=== PATIENT | female | born 1950 | race Caucasian/White ===

== ENCOUNTER 2024-01-22 14:41 | Emergency (ER) | payer OTHER ==
[~2024-01-22] VITALS: Ht 162.6 cm; Wt 85.0 kg
[2024-01-22] MEDS: ACETAMINOPHEN 500 MG TAB PO ONE (15:29)
[2024-01-22 16:24] LABS: Basophils # (auto) 0.1 10 ^3/uL (0-0.2); Basophils % (auto) 0.6 % (0.0-2.0); Eosinophils # (auto) 0.1 10 ^3/uL (0-0.8); Eosinophils % (auto) 0.8 % (0.0-7.0); Hematocrit 26.7 % (36.0-46.0); Hemoglobin 8.8 g/dL (12.2-16.2); Lymphocytes # (auto) 1.6 10 ^3/uL (0.4-5.4); Lymphocytes % (auto) 9.3 % (10.0-50.0); Mean Corpuscular Hgb Conc. 32.9 g/dL (32.0-36.0); Mean Corpuscular Volume 88.2 fL (80.0-100.0); Monocytes # (auto) 1.1 10 ^3/uL (0-1.3); Monocytes % (auto) 6.4 % (0.0-12.0); Neutrophils % (auto) 82.9 % (37.0-80.0); Nucleated Red Blood Cells % 0.1 %; Red Blood Cells 3.03 10^6/uL (4.0-5.20); Red Cell Distribution Width 13.5 % (11.8-14.3); White Blood Cell 16.9 10^3/uL (4.4-10.8)
[2024-01-22 16:40] LABS: Alanine Aminotransferase 19 U/L (7-40); Albumin 3.1 g/dL (3.2-4.8); Alkaline Phosphatase 77 U/L (46-116); Anion Gap 10 (5-15); Aspartate Aminotransferase 22 U/L (13-40); BUN/Creatinine Ratio 14.1 (10.0-20.0); Bilirubin, Total 0.5 mg/dL (0.2-1.0); Blood Alcohol < 3.0 mg/dL (<10); Blood Urea Nitrogen 14 mg/dL (9-23); Calcium 8.4 mg/dL (8.5-10.1); Carbon Dioxide 17 mmol/L (20-30); Chloride 105 mmol/L (98-107); Glucose 69 mg/dL (74-106); Potassium 3.8 mmol/L (3.5-5.1); Sodium 132 mmol/L (136-145); Total Protein 5.7 g/dL (5.7-8.2)
[2024-01-22 17:08] LABS: Magnesium 1.2 mg/dL (1.6-2.6)
[2024-01-22] MEDS: DEXTROSE 50% SYRINGE 50 ML IV ONE (18:20)
[2024-01-22] MEDS: DEXTROSE (50%) 50ML SYRG IV ONE (18:20)
[2024-01-22 18:58] LABS: Amphetamine Screen, Urine Neg (NEGATIVE); Barbiturate Scree,Urine Neg (NEGATIVE); Benzodiazephine Screen, Urine Neg (NEGATIVE); Cannabinoid Screen, Urine Neg (NEGATIVE); Cocaine Screen, Urine Neg (NEGATIVE); Opiate Scree,Urine Neg (NEGATIVE); Phencyclidine Screen, Urine Neg (NEGATIVE)
[2024-01-22 19:08] LABS: Urine Bacteria FEW /hpf (None Seen); Urine Blood Negative /uL (Negative); Urine Clarity Clear (Clear); Urine Color Colorless (Yellow); Urine Protein, UAD Negative (Negative); Urine Specific Gravity 1.006 (1.001-1.035); Urine Urobilinogen Normal (Negative); Urine WBC 13 /hpf (0 - 5)
[2024-01-22] MEDS ORDERED: cefTRIAXone 1GM/50ML D5W 50 ML IV ONE (20:30)
[2024-01-22] MEDS: IOHEXOL 350 MG/ML 100ML IJ ONE (20:44)
[2024-01-22] MEDS ORDERED: PIPERACILLIN-TAZOB 3.375GM 100 ML IV ONE (21:15)
[2024-01-22] MEDS ORDERED: MAGNESIUM SULFATE 1GM/100ML 100 ML IV ONE (21:15)
[2024-01-22] MEDS ORDERED: VANCOMYCIN PER PHARMACY 0 MG IV SCH (21:15)
[2024-01-22] MEDS ORDERED: VANCOMYCIN 1GM/200ML 200 ML IV ONE (21:30)
[2024-01-23 03:56] VITALS: BP 138/51; PULSE 129; RESP 18; TEMP 98.2; O2SAT 95
== END 2024-01-23 04:00 | disposition short-term general hospital (02) ==
LOC: EDBD 14:41 → ER 14:41
DX: G93.41 Metabolic encephalopathy (principal); E11.649 Type 2 diabetes mellitus with hypoglycemia without coma; R41.82 Altered mental status, unspecified; N39.0 Urinary tract infection, site not specified; E87.1 Hypo-osmolality and hyponatremia; Z79.899 Other long term (current) drug therapy
CPT/HCPCS: 36415; 70450; 71045; 71275; 80053; 80307; 80320; 81001; 83605; 83735; 84484; 85025; 85379; 93005; 96374; 99285; J7042; Q9967

== ENCOUNTER 2025-05-25 06:25 | Inpatient (IN) | payer OTHER ==
[2025-05-25] VITALS (41 sets, daily range): BP systolic 54–100; BP diastolic 15–54; PULSE 89–106; RESP 8–34; TEMP 98.6; O2SAT 81–100
[~2025-05-25] VITALS: Ht 162.6 cm; Wt 93.2 kg
--- NOTE | 2025-05-25 06:35 | ED.PDOC ---
Altered Mental Status HPI Comments 75 year old female with a Hx of DM, HTN, and Hyperlipidemia was BIBA for the c/c of ALOC, w/ associated Incontinence. EMS states that pt was found unresponsive by family, and has progressively become more altered on route, with now only responsive to painful stimuli. EMS notes that pt had an Accucheck of 500, and is currently DKA. EMS notes that pt has been non-compliant with her DM medications. Pt is noted to be altered and unresponsive at this time. Time Seen by MD: 06:31 Reviewed Notes: Nurses Notes, Medications, Allergies Allergies: Coded Allergies: NO KNOWN ALLERGIES (Unverified , 09/12/15) Information Source: Patient Mode of Arrival: EMS Severity: Severe Timing: Hours Duration: Since onset, Hours Prehospital treatment: 12 Lead EKG, Accucheck, Cosmetologist Apprentice Quality: Decreased Alertness, Change in Behavior, Confusion History of: Diabetes Associated Signs and Symptoms: None Past Medical History PAST MEDICAL HISTORY: DM, High Lipids, HTN Surgical History: Denies all surgeries OCCUPATIONAL THERAPIST AIDE History: No Pertinent OCCUPATIONAL THERAPIST AIDE History Family History Family History: Unobtainable Social History Smoker: Other Alcohol: Other Drugs: Other Lives In: Home Constitutional: denies: chills, diaphoresis, fatigue, fever, malaise, sweats, weakness, others EENTM: denies: blurred vision, double vision, ear bleeding, ear discharge, ear drainage, ear pain, ear ringing, eye pain, eye redness, hearing loss, mouth pain, mouth swelling, nasal discharge, nose bleeding, nose congestion, nose pain, photophobia, tearing, throat pain, throat swelling, voice changes, others Respiratory: denies: cough, hemoptysis, orthopnea, SOB at rest, shortness of breath, SOB with excertion, stridor, wheezing, others Cardiovascular: denies: chest pain, dizzy spells, diaphoresis, Dyspnea on exertion, edema, irregular heart beat, left arm pain, lightheadedness, palpitations, PND, syncope, others Gastrointestinal: denies: abdomen distended, abdominal pain, blood streaked bowels, constipated, diarrhea, dysphagia, difficulty swallowing, hematemesis, melena, nausea, poor appetite, poor fluid intake, rectal bleeding, rectal pain, vomiting, others Genitourinary: denies: abnormal vagina bleeding, burning, dyspareunia, dysuria, flank pain, frequency, hematuria, incontinence, pain, , vagina discharge, urgency, others Neurological: denies: dizziness, fainting, headache, left sided numbness, left sided weakness, numbness, paresthesia, pre-existing deficit, right sided numbness, right sided weakness, seizure, speech problems, tingling, tremors, weakness, others Musculoskeletal: denies: back pain, gout, joint pain, joint swelling, muscle pain, muscle stiffness, neck pain, others Integumetry: denies: bruises, change in color, change in hair/nails, dryness, laceration, lesions, lumps, rash, wounds, others Allergic/Immunocompromised: denies: Difficulty Healing, Frequent Infections, Hives, Itching, others Hematologic/Lymphatic: denies: anemia, blood clots, easy bleeding, easy bruising, swollen glands, others Endocrine: denies: excessive hunger, excessive sweating, excessive thirst, excessive urination, flushing, intolerance to cold, intolerance to heat, unexplained weight gain, unexplained weight loss, others Psychiatric: denies: anxiety, bipolar disorder, depression, hopeless, panic disorder, schizophrenia, sleepless, suicidal, others Unable to Obtain due to: Altered Mental Status All Other Systems: Reviewed and Negative Physical Exam General Appearance: Normal, Severe Distress HEENT: Normal ENT Inspection, Pharynx Normal, TMs Normal Neck: Full Range of Motion, Non-Tender, Normal, Normal Inspection Respiratory: Chest Non-Tender, Lungs Clear, No Accessory Muscle Use, No Respiratory Distress, Normal Breath Sounds Cardiovascular: No Edema, No JVD, No Murmur, No Gallop, Normal Peripheral Pulses, Tachycardia Breast Exam: Deferred Gastrointestinal: No Organomegaly, Non Tender, No Pulsatile Mass, Normal Bowel Sounds, Soft Genitalia: Deferred Pelvic: Deferred Rectal: Deferred Extremities: No calf tenderness, Normal capillary refill, Normal range of motion, Non-tender, No pedal edema, Swelling (Lymphedema right upper extremity) Musculoskeletal : Apperance: Normal Neurologic: Disoriented, No Motor Deficits, Normal Affect, Normal Mood, No Sensory Deficits Cerebellar Function: NOT DONE Reflexes: NOT DONE Skin: Dry, Normal Color, Warm, Other (Redness of the right upper arm extending to the right breast) Peripheral Pulses: 3+ Radial (R), 3+ Radial (L) Lymphatic: No Adenopathy EKG EKG : Pulse Rate (adult): 121 [place]: Normal Cardiac Rhythm: ST Block: None Hypertrophy: None ST: Normal Comments prolonged Q-T Interval Was a procedure done? Was a procedure done?: Yes Sedation Sedation?: No Central Line Recorder of insertion practice: Observer Occupation of solutions market consultant: Attending Physician Indication: Inability to obtain IV Room prepared for procedure: Yes Supervisor Feed House performed hand hygien: Yes Maximal sterile barrier precau: Mask/Eye shield, Sterile gown, Cap, Sterlie gloves, Large sterlie drape Skin Preparation: Chlorhexidine gluconate Skin preparation completely dr: Yes Insertion site: Right, Femoral Central line catheter type: [id number] dialysis Number of lumens: 3 Central line exchanged over a: Yes Antiseptic ointment applied to: Yes Post Assessment: Chest X-Ray, No Pneumothorax Informed consent obtained: No Risks/benefits/alt described: No Differential Diagnosis (ALOC) Differential Diagnosis: Dehydration, DKA, Encephalopathy, Sepsis, Drug Overdose, ETOH Intoxication, Renal Failure X-Ray, Labs, Meds, VS Vital Signs Date Time Temp Pulse Resp B/P (MAP) Pulse Ox O2 Delivery O2 Flow Rate FiO2 05/25/25 10:30 102/52 05/25/25 10:25 99/51 05/25/25 10:20 100/51 05/25/25 10:15 104/53 05/25/25 10:10 99/51 05/25/25 10:05 89/50 05/25/25 10:00 103/50 05/25/25 09:55 102/46 05/25/25 09:50 101/46 05/25/25 09:45 85/38 05/25/25 09:30 89/41 05/25/25 09:25 99/28 05/25/25 09:20 79/35 05/25/25 09:15 70/26 05/25/25 09:10 92/40 05/25/25 09:09 17 81 Room Air* 0 21 05/25/25 09:05 83/35 05/25/25 09:00 80/35 05/25/25 08:55 83/33 05/25/25 08:48 101/23 05/25/25 06:50 100.1 130 22 51/90 96 100.1 05/25/25 06:49 Room Air* 0 21 05/25/25 06:45 97.5 92 29 70/29 (43) 92 97.5 05/25/25 06:38 121 05/25/25 06:34 121 Lab Test 05/25/25 11:18 05/25/25 10:48 05/25/25 08:41 05/25/25 08:25 Range/Units POC Glucose 233 H 410 *H 70-106 mg/dl Lactic Acid Level Pending 8.5 *H 0.4-2.0 mmol/L White Blood Count 13.7 H 4.4-10.8 10^3/uL Red Blood Count 4.39 4.0-5.20 10^6/uL Hemoglobin 14.0 12.2-16.2 g/dL Hematocrit 42.5 36.0-46.0 % Mean Corpuscular Volume 96.6 80.0-100.0 fL Mean Corpuscular Hemoglobin 31.8 28.0-32.0 pg Mean Corpuscular Hemoglobin Concent 32.9 32.0-36.0 g/dL Red Cell Distribution Width 13.7 11.8-14.3 % Platelet Count 165 140-450 10^3/uL Mean Platelet Volume 8.3 6.9-10.8 fL Neutrophils (%) (Auto) 87.9 H 37.0-80.0 % Lymphocytes (%) (Auto) 8.5 L 10.0-50.0 % Monocytes (%) (Auto) 3.1 0.0-12.0 % Eosinophils (%) (Auto) 0.3 0.0-7.0 % Basophils (%) (Auto) 0.2 0.0-2.0 % Neutrophils # (Auto) 12.1 H 1.6-8.6 10 ^3/uL Lymphocytes # (Auto) 1.2 0.4-5.4 10 ^3/uL Monocytes # (Auto) 0.4 0-1.3 10 ^3/uL Eosinophils # (Auto) 0 0-0.8 10 ^3/uL Basophils # (Auto) 0 0-0.2 10 ^3/uL Nucleated Red Blood Cells 0.3 % Prothrombin Time 11.6 9.3-11.8 sec Prothrombin Time INR 1.11 0.9-1.15 Activated Partial Thromboplast Time 26.7 24.5-34.5 SEC Sodium Level 136 136-145 mmol/L Potassium Level 3.1 L 3.5-5.1 mmol/L Chloride Level 102 98-107 mmol/L Carbon Dioxide Level 15 L 20-31 mmol/L Anion Gap 19 H 5-15 Blood Urea Nitrogen 23 9-23 mg/dL Creatinine 2.66 H 0.550-1.02 mg/dL Glomerular Filtration Rate Calc 18 >90 mL/min BUN/Creatinine Ratio 8.6 L 10.0-20.0 Serum Glucose 418 *H 74-106 mg/dL Calcium Level 9.1 8.7-10.4 mg/dL Total Bilirubin 0.9 0.2-1.0 mg/dL Aspartate Amino Transferase (AST) 83 H 13-40 U/L Alanine Aminotransferase (ALT) 36 7-40 U/L Alkaline Phosphatase 81 46-116 U/L Total Protein 6.0 5.7-8.2 g/dL Albumin 3.5 3.2-4.8 g/dL Beta-Hydroxybutyric Acid 0.287 < 0.4 mmol/L Plasma/Serum Blood Alcohol < 3.0 <10 mg/dL Test 05/25/25 08:07 Range/Units Urine Color Colorless Yellow Urine Clarity Turbid H Clear Urine pH 5.5 5.0-9.0 Urine Specific [place] 1.008 1.001-1.035 Urine Protein Negative Negative Urine Ketones Negative Negative Urine Blood Trace H Negative /uL Urine Nitrite 2+ H Negative Urine Bilirubin Negative Negative Urine Urobilinogen Normal Negative mg/dL Urine Leukocyte Esterase 3+ Negative /uL Urine RBC 6 0 - 4 /hpf Urine Microscopic WBC 366 H 0-5 /HPF Urine Squamous Epithelial Cells None seen <5 /hpf Urine Bacteria Few H None Seen /hpf Urine Glucose 4+ H Normal mg/dL Current Medications Medications (Trade) Dose Ordered Sig/Linda Route Start Time Stop Time Status Last Admin Sodium Chloride 1,000 ml @ 1,000 mls/hr Q1H ONCE IV 05/25/25 06:45 05/25/25 07:44 DC 05/25/25 08:28 Sodium Chloride 1,000 ml @ 150 mls/hr Q6H40M ONCE IV 05/25/25 06:45 05/25/25 13:24 05/25/25 08:29 Insulin Human (Reg)/Sodium Chloride 100 ml @ 0.5 mls/hr Q24H IV 05/25/25 06:45 05/25/25 09:50 Diagnostic Test (Pha) (Accu-Chek Comfort Curve T) 1 strip Q90MIN 05/25/25 07:30 05/25/25 11:26 Insulin Glargine (Lantus) 15 units ONCE ONCE SC 05/25/25 06:45 05/25/25 06:49 DC 05/25/25 10:03 Cefepime HCl 50 ml @ 50 mls/hr ONCE ONCE IV 05/25/25 07:00 05/25/25 07:59 DC 05/25/25 08:27 Sodium Chloride 1,000 ml @ 1,000 mls/hr Q1H ONCE IVB 05/25/25 08:00 05/25/25 08:59 DC 05/25/25 08:28 Sodium Chloride 1,000 ml @ 150 mls/hr Q6H40M ONCE IV 05/25/25 08:00 05/25/25 14:39 05/25/25 08:28 Piperacillin Sod/ Tazobactam Sod 100 ml @ 100 mls/hr ONCE ONCE IV 05/25/25 08:00 05/25/25 08:59 DC 05/25/25 08:27 Clindamycin Phosphate 50 ml @ 50 mls/hr ONCE ONCE IV 05/25/25 08:15 05/25/25 09:14 DC 05/25/25 08:29 Insulin Human Regular (InsuLIN R) 10 units ONCE ONCE IV 05/25/25 08:45 05/25/25 08:46 DC 05/25/25 08:49 Norepinephrine Bitartrate 250 ml @ 3.75 mls/hr Q24H IV 05/25/25 08:45 05/25/25 10:13 DC 05/25/25 08:48 Ondansetron HCl (Zofran) 4 mg ONCE ONCE IV 05/25/25 09:30 05/25/25 09:31 DC 05/25/25 09:39 Norepinephrine Bitartrate 16 mg/ Sodium Chloride 250 ml @ 1.875 mls/ hr Q24H IV 05/25/25 09:30 05/25/25 11:00 PATIENT: SHRUTHI BURNETT ACCT: [id number] UNIT: [id number] : 1950 LOC: ER ROOM / BED: / AGE / SEX: 75 / F ADM STATUS: REG ER SERVICE [id number] ORDERING PHYSICIAN: АЛЕКСАНДР DALE MD PROCEDURE(s): CXRP - CHEST PORTABLE REASON: sob ORDER NUMBER(s): [id number], ACCESSION NUMBER(s): [id number] CHEST RADIOGRAPH Indication: sob Technique: Single frontal view of the chest was obtained COMPARISON: CT CT ANGIO CHEST CONTRAST on DOS: 01/22/24, XY CHEST PORTABLE on DOS: 01/22/24 FINDINGS: Lines and Tubes: None Lungs: Clear Pleura: No effusion. No pneumothorax. Cardiomediastinal contours: Unremarkable Bones: Unremarkable IMPRESSION: 1. No acute disease. ENT: SHRUTHI BURNETT ACCT: [id number] UNIT: [id number] : 1950 LOC: ER ROOM / BED: / AGE / SEX: 75 / F ADM STATUS: REG ER SERVICE 0804 ORDERING PHYSICIAN: АЛЕКСАНДР DALE MD PROCEDURE(s): RUDVT - Rt Upper DVT REASON: dvt ORDER NUMBER(s): [id number], ACCESSION NUMBER(s): [id number] RIGHT Upper Extremity Venous Duplex Clinical History: dvt Comparison: None Findings: Duplex Doppler evaluation of the venous system of the RIGHT lower neck and upper extremity including color Doppler and spectral/pulsed waveform analysis was performed. The internal jugular vein demonstrates appropriate compressibility and waveform variability. The subclavian vein is patent on color Doppler evaluation without intraluminal thrombus and demonstrates waveform variability. The visualized portion of the brachiocephalic vein is patent on color Doppler evaluation without intraluminal thrombus and demonstrates waveform variability. The axillary vein demonstrates appropriate compressibility and waveform variability. The brachial veins demonstrate appropriate compressibility and patency on Doppler evaluation. The basilic vein demonstrates appropriate compressibility and patency on Doppler evaluation. Thrombus in the cephalic vein Impression: Thrombus in the cephalic vein. If clinical concern/symptoms persist or worsen, short-interval follow-up study is suggested. ENT: SHRUTHI BURNETT ACCT: [id number] UNIT: [id number] : 1950 LOC: ER ROOM / BED: / AGE / SEX: 75 / F ADM STATUS: REG ER SERVICE 3 ORDERING PHYSICIAN: АЛЕКСАНДР DALE MD PROCEDURE(s): HWOCT - HEAD WITHOUT CONTRAST REASON: altered ORDER NUMBER(s): [id number], ACCESSION NUMBER(s): [id number] CLINICAL HISTORY: altered TECHNIQUE: Helical scanning was performed of the head from the skull base to the vertex. Multiplanar reconstructions were performed. This exam was performed according to our departmental dose optimization program. Up-to-date CT equipment and radiation dose reduction techniques are utilized as appropriate. CTDI 58.0 DLP 1054.6 COMPARISON: CT HEAD WITHOUT CONTRAST on DOS: 01/22/24 FINDINGS: There is no evidence for acute intracranial hemorrhage, acute ischemic changes, mass, mass effect, or extra-axial fluid collection. There is no hydrocephalus or midline shift. There is no effacement of the cerebral sulci and basal subarachnoid cisterns. The gonzalez-white matter differentiation is well maintained. There has been right frontal temporal craniotomy with a small area of subjacent encephalomalacia. The imaged paranasal sinuses are clear. IMPRESSION: NO ACUTE INTRACRANIAL ABNORMALITY SEEN. Patient altered. Tachycardia. Hypotensive. Has fever. Sepsis protocol. Establish central line. Was given fluids. Was given Zosyn. Was given azithromycin. Possible DKA. Continue to monitor. [place] approved inpatient admission [id number]. Time of 1ST Reevaluation: 07:00 Reevaluation 1ST: Unchanged Patient Education/Counseling: Diagnosis, Treatment, Need For Follow Up Family Education/Counseling: No Family Present SEPSIS Sepsis Screen Physician Orders Chest Portable (05/25/25 06:45) Accucheck (05/25/25 06:45) Blood Culture (05/25/25 06:45) Cefepime 1gm/ 50ml (Maxipime 1gm/50ml) (05/25/25 14:00) Notify Md If Map <65 Or Bp<90 (05/25/25 06:45) If Map<65 Start Vasopressor (05/25/25 06:45) Sepsis Reassesment After Fluid (05/25/25 07:45) Sodium Chloride 0.9% (05/25/25 06:45) Insulin Drip 100 Unit/100ml (Myxredlin 1 (05/25/25 06:45) Glucose Blood (Accu-Chek Comfort Curve T (05/25/25 07:30) D/C All Diabetic Medications (05/25/25 06:45) Insulin Drip Protocol (05/25/25 06:45) Dextrose 50% Syringe (05/25/25 06:45) Insulin Lantus (Glargine) (Lantus) (05/26/25 10:00) Cosmetologist Apprentice (05/25/25 08:00) Sodium Chloride 0.9% (05/25/25 08:00) Head Without Contrast (05/25/25 08:04) Rt Upper Dvt (05/25/25 08:04) Urine Bacterial Culture (05/25/25 08:12) Insert/Manage Urinary Catheter QSHIFT (05/25/25 08:14) Pharmacy Clarification: (05/25/25 09:07) Stool Occult Blood (05/25/25 09:23) Clostridium Difficile Toxin (05/25/25 09:23) Sodium Chl 0.9% (Ns... W/Norepinephrine (05/25/25 09:30) Communication Order (05/25/25 10:57) Vital Signs Date Time Temp Pulse Resp B/P (MAP) Pulse Ox O2 Delivery O2 Flow Rate FiO2 05/25/25 10:30 102/52 05/25/25 10:25 99/51 05/25/25 10:20 100/51 05/25/25 10:15 104/53 05/25/25 10:10 99/51 05/25/25 10:05 89/50 05/25/25 10:00 103/50 05/25/25 09:55 102/46 05/25/25 09:50 101/46 05/25/25 09:45 85/38 05/25/25 09:30 89/41 05/25/25 09:25 99/28 05/25/25 09:20 79/35 05/25/25 09:15 70/26 05/25/25 09:10 92/40 05/25/25 09:09 17 81 Room Air* 0 05/25/25 09:05 83/35 05/25/25 09:00 80/35 05/25/25 08:55 83/33 05/25/25 08:48 101/23 05/25/25 06:50 100.1 130 22 51/90 96 100.1 05/25/25 06:49 Room Air* 0 21 05/25/25 06:45 97.5 92 29 70/29 (43) 92 97.5 05/25/25 06:38 121 05/25/25 06:34 121 Laboratory Tests Test 05/25/25 08:41 05/25/25 10:48 Lactic Acid Level 8.5 mmol/L (0.4-2.0) *H Pending White Blood Count 13.7 10^3/uL (4.4-10.8) H Medications Medications Dose Ordered Sig/Linda Route Start Time Stop Time Status Last Admin Dose Admin Cefepime HCl 50 ml @ 50 mls/hr ONCE ONCE IV 05/25/25 07:00 05/25/25 07:59 DC 05/25/25 08:27 Clindamycin Phosphate 50 ml @ 50 mls/hr ONCE ONCE IV 05/25/25 08:15 05/25/25 09:14 DC 05/25/25 08:29 Diagnostic Test (Pha) 1 strip Q90MIN 05/25/25 07:30 05/25/25 11:26 Insulin Glargine 15 units ONCE ONCE SC 05/25/25 06:45 05/25/25 06:49 DC 05/25/25 10:03 Insulin Human (Reg)/Sodium Chloride 100 ml @ 0.5 mls/hr Q24H IV 05/25/25 06:45 05/25/25 09:50 Insulin Human Regular 10 units ONCE ONCE IV 05/25/25 08:45 05/25/25 08:46 DC 05/25/25 08:49 Norepinephrine Bitartrate 250 ml @ 3.75 mls/hr Q24H IV 05/25/25 08:45 05/25/25 10:13 DC 05/25/25 08:48 Norepinephrine Bitartrate 16 mg/ Sodium Chloride 250 ml @ 1.875 mls/ hr Q24H IV 05/25/25 09:30 05/25/25 11:00 Ondansetron HCl 4 mg ONCE ONCE IV 05/25/25 09:30 05/25/25 09:31 DC 05/25/25 09:39 Piperacillin Sod/ Tazobactam Sod 100 ml @ 100 mls/hr ONCE ONCE IV 05/25/25 08:00 05/25/25 08:59 DC 05/25/25 08:27 Sodium Chloride 1,000 ml @ 150 mls/hr Q6H40M ONCE IV 05/25/25 06:45 05/25/25 13:24 05/25/25 08:29 Sodium Chloride 1,000 ml @ 150 mls/hr Q6H40M ONCE IV 05/25/25 08:00 05/25/25 14:39 05/25/25 08:28 Sodium Chloride 1,000 ml @ 1,000 mls/hr Q1H ONCE IV 05/25/25 06:45 05/25/25 07:44 DC 05/25/25 08:28 Sodium Chloride 1,000 ml @ 1,000 mls/hr Q1H ONCE IVB 05/25/25 08:00 05/25/25 08:59 DC 05/25/25 08:28 Departure 1 Departure Time of Disposition: 08:03 Impression: Primary Impression: Metabolic encephalopathy Additional Impressions: Sepsis Qualified Codes: A41.9 - Sepsis, unspecified organism DKA (diabetic ketoacidosis) Qualified Codes: E13.10 - Other specified diabetes mellitus with ketoacidosis without coma Disposition: ADMITTED INPATIENT Admit to: Med Surg Condition: Guarded Critical Care Note Critical Care Time?: Yes (90 min-critical care time only) Stability Stability form required: No Heart Score Heart Score: Heart Score Response (Comments) Value History Slightly Suspicious 0 EKG Normal 0 Age >65 2 Risk Factors >3 or Hx ASHD 2 Troponin Normal limit 0 Total 4 I personally scribed for АЛЕКСАНДР DALE MD ([email or web address]) on 05/25/25 at 06:35. Electronically submitted by Garry Thompson ([email or web address]). I personally scribed for АЛЕКСАНДР DALE MD ([email or web address]) on 05/25/25 at 06:38. Electronically submitted by Garry Thompson ([email or web address]). I personally scribed for АЛЕКСАНДР DALE MD ([email or web address]) on 05/25/25 at 07:11. Electronically submitted by Garry Thompson ([email or web address]). I personally scribed for АЛЕКСАНДР DALE MD ([email or web address]) on 05/25/25 at 07:48. Electronically submitted by Garry Thompson ([email or web address]). I personally scribed for АЛЕКСАНДР DALE MD ([email or web address]) on 05/25/25 at 08:05. Electronically submitted by Garry Thompson ([email or web address]). I personally scribed for АЛЕКСАНДР DALE MD ([email or web address]) on 05/25/25 at 11:47. Electronically submitted by Garry Thompson ([email or web address]). АЛЕКСАНДР DALE MD May 25, 2025 06:35
[2025-05-25] MEDS ORDERED: DEXTROSE (50%) 50ML SYRG IV PRN ×3 (06:45→17:15)
--- NOTE | 2025-05-25 06:48 | ECG ---
[facility] Test Date: 2025-05-25 Test Time: 06:34:55 Pat Name: SHRUTHI BURNETT Department: [facility] ED Patient ID: [facility]-[id number] Room: Gender: F Rod Finisher: CLAUDIA : 1950 Requested By: АЛЕКСАНДР DALE Order Number: [id number] Reading MD: Measurements Intervals [place] Rate: 121 P: 28 HI: 138 QRS: 49 QRSD: 92 T: 38 QT: 364 QTc: 517 Interpretive Statements Sinus tachycardia Borderline low voltage, extremity leads Prolonged QT interval Please click the below link to view image of tracing.
--- NOTE | 2025-05-25 07:27 | DVH ---
CHEST RADIOGRAPH Indication: sob Technique: Single frontal view of the chest was obtained COMPARISON: CT CT ANGIO CHEST CONTRAST on DOS: 01/22/24, XY CHEST PORTABLE on DOS: 01/22/24 FINDINGS: Lines and Tubes: None Lungs: Clear Pleura: No effusion. No pneumothorax. Cardiomediastinal contours: Unremarkable Bones: Unremarkable IMPRESSION: 1. No acute disease.
[2025-05-25] MEDS ORDERED: AZITHROMYCIN 500MG/ 250ML 250 ML IV ONE (08:00)
[2025-05-25] MEDS: PIPERACILLIN-TAZOB 3.375GM 100 ML IV ONE (08:27)
[2025-05-25] MEDS: CEFEPIME 1GM/ 50ML 50 ML IV ONE (08:27)
[2025-05-25] MEDS: SODIUM CHLORIDE 0.9% 1,000 ML IVB ONE (08:28)
[2025-05-25] MEDS: SODIUM CHLORIDE 0.9% 1,000 ML IV ONE ×3 (08:28→08:29)
[2025-05-25] MEDS: CLINDAMYCIN 600MG IV 50 ML IV ONE (08:29)
[2025-05-25] MEDS: NOREPINEPHRINE 8 MG/250ML KIT 250 ML IV SCH (08:48)
[2025-05-25] MEDS: InsuLIN REG 1unit/0.01ml Soln (100units/ml) IV ONE (08:49)
[2025-05-25 08:52] LABS: Urine Protein, UAD Negative (Negative)
--- NOTE | 2025-05-25 08:53 | DVH ---
RIGHT Upper Extremity Venous Duplex Clinical History: dvt Comparison: None Findings: Duplex Doppler evaluation of the venous system of the RIGHT lower neck and upper extremity including color Doppler and spectral/pulsed waveform analysis was performed. The internal jugular vein demonstrates appropriate compressibility and waveform variability. The subclavian vein is patent on color Doppler evaluation without intraluminal thrombus and demonstra hamilton waveform variability. The visualized portion of the brachiocephalic vein is patent on color Doppler evaluation without intr aluminal thrombus and demonstrates waveform variability. The axillary vein demonstrates appropriate compressibility and waveform variability. The brachial veins demonstrate appropriate compressibility and patency on Doppler evaluation. The basilic vein demonstrates appropriate compressibility and patency on Doppler evaluation. Thrombus in the cephalic vein Impression: Thrombus in the cephalic vein. If clinical concern/symptoms persist or worsen, short-interval follow-up study is suggested.
[2025-05-25 09:10] LABS: Hematocrit 42.5 % (36.0-46.0); Hemoglobin 14.0 g/dL (12.2-16.2); Mean Corpuscular Hemoglobin 31.8 pg (28.0-32.0); Mean Corpuscular Volume 96.6 fL (80.0-100.0); Nucleated Red Blood Cells % 0.3 %
[2025-05-25 09:15] LABS: Alanine Aminotransferase 36 U/L (7-40); Albumin 3.5 g/dL (3.2-4.8); Alkaline Phosphatase 81 U/L (46-116); Anion Gap 19 (5-15); BUN/Creatinine Ratio 8.6 (10.0-20.0); Bilirubin, Total 0.9 mg/dL (0.2-1.0); Blood Urea Nitrogen 23 mg/dL (9-23); Calcium 9.1 mg/dL (8.7-10.4); Chloride 102 mmol/L (98-107); Total Protein 6.0 g/dL (5.7-8.2)
[2025-05-25 09:16] LABS: Carbon Dioxide 15 mmol/L (20-31); Potassium 3.1 mmol/L (3.5-5.1); Sodium 136 mmol/L (136-145)
[2025-05-25 09:17] LABS: Glucose 418 mg/dL (74-106)
[2025-05-25 09:20] LABS: INR 1.11 (0.9-1.15); Lactic Acid w/Reflex 8.5 mmol/L (0.4-2.0); Partial Thromboplastin Time 26.7 SEC (24.5-34.5); Prothrombin Time 11.6 sec (9.3-11.8)
[2025-05-25] MEDS: ONDANSETRON HCL 4 MG/2 ML VIAL IV ONE (09:39)
[2025-05-25] MEDS: INSULIN DRIP 100 UNIT/100ML 100 ML IV SCH ×2 (09:50→15:00)
[2025-05-25] MEDS: ACCU-CHEK COMFORT CURVE STRIP VI SCH ×3 (09:51→22:00)
[2025-05-25] MEDS: INSULIN LANTUS (GLARGINE) 1 /0.01ml (100units/ml) SC ONE ×2 (10:03→12:45)
--- NOTE | 2025-05-25 10:04 | DVH ---
CLINICAL HISTORY: altered TECHNIQUE: Helical scanning was performed of the head from the skull base to the vertex. Multiplanar reconstructions were performed. This exam was performed according to our departmental dose optimizat ion program. Up-to-date CT equipment and radiation dose reduction techniques are utilized as appropri ate. CTDI 58.0 DLP 1054.6 COMPARISON: CT HEAD WITHOUT CONTRAST on DOS: 01/22/24 FINDINGS: There is no evidence for acute intracranial hemorrhage, acute ischemic changes, mass, mass effect, or extra-axial fluid collection. There is no hydrocephalus or midline shift. There is no effacement of the cerebral sulci and basal subarachnoid cisterns. The gonzalez-white matter differentiation is well matilda ntained. There has been right frontal temporal craniotomy with a small area of subjacent encephalomal acia. The imaged paranasal sinuses are clear. IMPRESSION: NO ACUTE INTRACRANIAL ABNORMALITY SEEN.
[2025-05-25] MEDS: NOREPINEPHRINE BITARTRATE 16 MG in SODIUM CHL 0.9% 234 ML IV SCH (11:00)
[2025-05-25] MEDS: SODIUM CHLORIDE 0.9% 1,000 ML IV SCH (12:45)
[2025-05-25] MEDS ORDERED: ACETAMINOPHEN 325 MG TAB PO PRN (12:45)
[2025-05-25] MEDS ORDERED: ATOR40TA52 PO (12:47)
[2025-05-25] MEDS ORDERED: LEVO75TA6 PO (12:47)
--- NOTE | 2025-05-25 13:09 | DVHHP2 ---
History of Present Illness Reason for Visit: ALOC History of Present Illness Ella Izaguirre is a 75-year-old female with past medical history of diabetes, hyperlipidemia, hypertension, right axillary tumor removal, lung cancer status post right lower lobe lobectomy, brain tumors, brain bleeds, 2 skull fractures, and colon surgery who presents to the ED with altered level of consciousness. Patient's daughter Neida is at the bedside but states that her sister Leonela lives at home with her mom. She states that her sister found her home sitting up on the edge of the bed unconscious and sitting in her own feces. States that she had bowel incontinence tried to get her up to the restroom to clean her up but was very weak. States that the called EMS for help. Upon examination patient is on 3 L nasal cannula of oxygen and does not use it at home. She is awake and alert responsive and talking. Patient's daughter also reports that this has happened before in the last time she was hospitalized for sepsis was a year and a half ago. She is also requesting that the patient be transferred over to [facility]. Patient denies recent trauma or injury, recent sick contacts, recent ingestion of spoiled food, recent travels, fever chills, shortness of breath, chest pain, abdominal pain, nausea, vomiting, diarrhea, lightheadedness, weakness, or dizziness. Cardiovascular: HTN, hyperipidemia Endocrine: Diabetes Past Medical History Lung cancer Brain tumors Brain bleeds 2 skull fractures Past Surgical History: Other (Right axillary tumor removal, status post right lower lobectomy, and colon surgery) Family History: Other (Dad had a stroke and from a heart attack) Smoke: No ALCOHOL: none Drugs: None Lives: with Family Domestic Violence: Neg Review of Systems Neurological: Other (ALOC) Allergies: Coded Allergies: NO KNOWN ALLERGIES (Unverified , 09/12/15) Medications Current Medications Medications Dose Ordered Sig/Linda Route Start Time Stop Time Status Last Admin Dose Admin Cefepime HCl 50 ml @ 12.5 mls/hr Q8HR IV 05/25/25 14:00 UNV Insulin Human (Reg)/Sodium Chloride 100 ml @ 0.5 mls/hr Q24H IV 05/25/25 06:45 05/25/25 09:50 0.5 MLS/HR Diagnostic Test (Pha) 1 strip Q90MIN 05/25/25 07:30 05/25/25 11:26 1 STRIP Dextrose 50 ml PRN PRN IV 05/25/25 06:45 Insulin Glargine 15 units DAILY SC 05/26/25 10:00 Norepinephrine Bitartrate 16 mg/ Sodium Chloride 250 ml @ 1.875 mls/ hr Q24H IV 05/25/25 09:30 05/25/25 11:00 20.625 MLS/HR Sodium Chloride 1,000 ml @ 500 mls/hr Q2H IV 05/25/25 12:45 05/25/25 16:44 UNV Sodium Chloride 1,000 ml @ 250 mls/hr Q4H IV 05/25/25 16:45 05/25/25 18:44 UNV Sodium Chloride 1,000 ml @ 150 mls/hr Q6H40M IV 05/25/25 18:45 UNV Insulin Human (Reg)/Sodium Chloride 100 ml @ 0.5 mls/hr Q24H IV 05/25/25 12:45 UNV Dextrose 50 ml UD PRN IV 05/25/25 12:45 UNV Diagnostic Test (Pha) 1 strip Q90MIN 05/25/25 13:30 UNV Insulin Glargine 15 units DAILY SC 05/26/25 10:00 UNV Ondansetron HCl 4 mg Q4HP PRN IV 05/25/25 12:45 UNV Enoxaparin Sodium 40 mg DAILY SC 05/26/25 10:00 UNV Acetaminophen 650 mg Q6HP PRN PO 05/25/25 12:45 UNV Ceftriaxone Sodium 50 ml @ 100 mls/hr DAILY@09 IV 05/26/25 09:00 UNV Potassium Chloride 100 ml @ 50 mls/hr Q2H IV 05/25/25 12:45 05/25/25 16:44 UNV Exam Vital Signs Vital Signs Date Time Temp Pulse Resp B/P (MAP) Pulse Ox O2 Delivery O2 Flow Rate FiO2 05/25/25 12:15 91 22 107/77 (87) 92 05/25/25 12:00 97.9 97.9 05/25/25 09:09 Room Air* 0 21 General Appearance: Alert, Oriented X3, Cooperative, No acute distress HEENT: Atraumatic, PERRLA, EOMI, Mucous membr. moist/pink Respiratory: Clear to auscultation, Normal air movement Cardiovascular: Regular rate, Normal S1, Normal S2 Abdominal: Normal bowel sounds, Soft Extremities: Normal pulses Skin: No significant lesion Neuro: Normal speech, Normal tone, Sensation intact Psych/Mental Status: Mental status NL, Mood NL Labs/Xrays Labs Test 05/25/25 11:18 05/25/25 10:48 05/25/25 08:41 05/25/25 08:07 Range/Units POC Glucose 233 H 70-106 mg/dl Lactic Acid Level 6.7 *H 0.4-2.0 mmol/L White Blood Count 13.7 H 4.4-10.8 10^3/uL Red Blood Count 4.39 4.0-5.20 10^6/uL Hemoglobin 14.0 12.2-16.2 g/dL Hematocrit 42.5 36.0-46.0 % Mean Corpuscular Volume 96.6 80.0-100.0 fL Mean Corpuscular Hemoglobin 31.8 28.0-32.0 pg Mean Corpuscular Hemoglobin Concent 32.9 32.0-36.0 g/dL Red Cell Distribution Width 13.7 11.8-14.3 % Platelet Count 165 140-450 10^3/uL Mean Platelet Volume 8.3 6.9-10.8 fL Neutrophils (%) (Auto) 87.9 H 37.0-80.0 % Lymphocytes (%) (Auto) 8.5 L 10.0-50.0 % Monocytes (%) (Auto) 3.1 0.0-12.0 % Eosinophils (%) (Auto) 0.3 0.0-7.0 % Basophils (%) (Auto) 0.2 0.0-2.0 % Neutrophils # (Auto) 12.1 H 1.6-8.6 10 ^3/uL Lymphocytes # (Auto) 1.2 0.4-5.4 10 ^3/uL Monocytes # (Auto) 0.4 0-1.3 10 ^3/uL Eosinophils # (Auto) 0 0-0.8 10 ^3/uL Basophils # (Auto) 0 0-0.2 10 ^3/uL Nucleated Red Blood Cells 0.3 % Prothrombin Time 11.6 9.3-11.8 sec Prothrombin Time INR 1.11 0.9-1.15 Activated Partial Thromboplast Time 26.7 24.5-34.5 SEC Sodium Level 136 136-145 mmol/L Potassium Level 3.1 L 3.5-5.1 mmol/L Chloride Level 102 98-107 mmol/L Carbon Dioxide Level 15 L 20-31 mmol/L Anion Gap 19 H 5-15 Blood Urea Nitrogen 23 9-23 mg/dL Creatinine 2.66 H 0.550-1.02 mg/dL Glomerular Filtration Rate Calc 18 >90 mL/min BUN/Creatinine Ratio 8.6 L 10.0-20.0 Serum Glucose 418 *H 74-106 mg/dL Calcium Level 9.1 8.7-10.4 mg/dL Total Bilirubin 0.9 0.2-1.0 mg/dL Aspartate Amino Transferase (AST) 83 H 13-40 U/L Alanine Aminotransferase (ALT) 36 7-40 U/L Alkaline Phosphatase 81 46-116 U/L Total Protein 6.0 5.7-8.2 g/dL Albumin 3.5 3.2-4.8 g/dL Beta-Hydroxybutyric Acid 0.287 < 0.4 mmol/L Plasma/Serum Blood Alcohol < 3.0 <10 mg/dL Urine Color Colorless Yellow Urine Clarity Turbid H Clear Urine pH 5.5 5.0-9.0 Urine Specific [place] 1.008 1.001-1.035 Urine Protein Negative Negative Urine Ketones Negative Negative Urine Blood Trace H Negative /uL Urine Nitrite 2+ H Negative Urine Bilirubin Negative Negative Urine Urobilinogen Normal Negative mg/dL Urine Leukocyte Esterase 3+ Negative /uL Urine RBC 6 0 - 4 /hpf Urine Microscopic WBC 366 H 0-5 /HPF Urine Squamous Epithelial Cells None seen <5 /hpf Urine Bacteria Few H None Seen /hpf Urine Glucose 4+ H Normal mg/dL CLINICAL HISTORY: altered TECHNIQUE: Helical scanning was performed of the head from the skull base to the vertex. Multiplanar reconstructions were performed. This exam was performed according to our departmental dose optimization program. Up-to-date CT equipment and radiation dose reduction techniques are utilized as appropriate. CTDI 58.0 DLP 1054.6 COMPARISON: CT HEAD WITHOUT CONTRAST on DOS: 01/22/24 FINDINGS: There is no evidence for acute intracranial hemorrhage, acute ischemic changes, mass, mass effect, or extra-axial fluid collection. There is no hydrocephalus or midline shift. There is no effacement of the cerebral sulci and basal subarachnoid cisterns. The gonzalez-white matter differentiation is well maintained. There has been right frontal temporal craniotomy with a small area of subjacent encephalomalacia. The imaged paranasal sinuses are clear. IMPRESSION: NO ACUTE INTRACRANIAL ABNORMALITY SEEN. RIGHT Upper Extremity Venous Duplex Clinical History: dvt Comparison: None Findings: Duplex Doppler evaluation of the venous system of the RIGHT lower neck and upper extremity including color Doppler and spectral/pulsed waveform analysis was performed. The internal jugular vein demonstrates appropriate compressibility and waveform variability. The subclavian vein is patent on color Doppler evaluation without intraluminal thrombus and demonstrates waveform variability. The visualized portion of the brachiocephalic vein is patent on color Doppler evaluation without intraluminal thrombus and demonstrates waveform variability. The axillary vein demonstrates appropriate compressibility and waveform variability. The brachial veins demonstrate appropriate compressibility and patency on Doppler evaluation. The basilic vein demonstrates appropriate compressibility and patency on Doppler evaluation. Thrombus in the cephalic vein Impression: Thrombus in the cephalic vein. CHEST RADIOGRAPH Indication: sob Technique: Single frontal view of the chest was obtained COMPARISON: CT CT ANGIO CHEST CONTRAST on DOS: 01/22/24, XY CHEST PORTABLE on DOS: 01/22/24 FINDINGS: Lines and Tubes: None Lungs: Clear Pleura: No effusion. No pneumothorax. Cardiomediastinal contours: Unremarkable Bones: Unremarkable IMPRESSION: 1. No acute disease. SEPSIS Sepsis Screen Date sepsis recognized/suspect: May 25, 2025 Time Sepsis recognized/suspect: 634 Recent Procedure: No On Antibiotic Therapy: No Respiratory Rate >20: No Heart Rate >90: No Temp<36 C (96.8 F) or >38.3 C: No SBP <90 or MAP <65 mmHG: No New Acute Mental Status Change: No Is the patient on CPAP, BIPAP,: No Physician Orders Chest Portable (05/25/25 06:45) Accucheck (05/25/25 06:45) Blood Culture (05/25/25 06:45) Cefepime 1gm/ 50ml (Maxipime 1gm/50ml) (05/25/25 14:00) Notify Md If Map <65 Or Bp<90 (05/25/25 06:45) If Map<65 Start Vasopressor (05/25/25 06:45) Sepsis Reassesment After Fluid (05/25/25 07:45) Sodium Chloride 0.9% (05/25/25 06:45) Insulin Drip 100 Unit/100ml (Myxredlin 1 (05/25/25 06:45) Glucose Blood (Accu-Chek Comfort Curve T (05/25/25 07:30) D/C All Diabetic Medications (05/25/25 06:45) Insulin Drip Protocol (05/25/25 06:45) Dextrose 50% Syringe (05/25/25 06:45) Insulin Lantus (Glargine) (Lantus) (05/26/25 10:00) Bottle House Quality Control Technician (05/25/25 08:00) Sodium Chloride 0.9% (05/25/25 08:00) Head Without Contrast (05/25/25 08:04) Rt Upper Dvt (05/25/25 08:04) Urine Bacterial Culture (05/25/25 08:12) Insert/Manage Urinary Catheter QSHIFT (05/25/25 08:14) Pharmacy Clarification: (05/25/25 09:07) Stool Occult Blood (05/25/25 09:23) Clostridium Difficile Toxin (05/25/25 09:23) Sodium Chl 0.9% (Ns... W/Norepinephrine (05/25/25 09:30) Communication Order (05/25/25 10:57) Insert Rectal Tube (05/25/25 11:46) Sodium Chloride 0.9% (05/25/25 12:45) Sodium Chloride 0.9% (05/25/25 16:45) Sodium Chloride 0.9% (05/25/25 18:45) Insulin Drip 100 Unit/100ml (Myxredlin 1 (05/25/25 12:45) Dextrose 50% Syringe (05/25/25 12:45) Glucose Blood (Accu-Chek Comfort Curve T (05/25/25 13:30) Complete Blood Count (05/25/25 12:37) Basic Metabolic Panel (05/25/25 12:37) Phosphorus (05/25/25 12:37) Magnesium (05/25/25 12:37) Osmolality, Serum (05/25/25 12:37) Abg W/ Co-Ox (05/25/25 12:37) Basic Metabolic Panel (05/25/25 18:37) Basic Metabolic Panel (05/26/25 00:37) Basic Metabolic Panel (05/26/25 06:37) Neurological Assessment (05/25/25 12:37) Vs/Hemodynamics .PER UNIT PROTOCOL (05/25/25 12:37) Acetone (05/25/25 12:37) Insulin Lantus (Glargine) (Lantus) (05/25/25 12:45) Insulin Lantus (Glargine) (Lantus) (05/26/25 10:00) Admit (05/25/25 12:37) Allergies (05/25/25 12:37) Code Status (05/25/25 12:37) Ondansetron Hcl (Zofran) (05/25/25 12:45) Enoxaparin Sodium (Lovenox) (05/26/25 10:00) Complete Blood Count (05/26/25 04:00) Comprehensive Metabolic Panel (05/26/25 04:00) Acetaminophen Tablet (Tylenol Tablet) (05/25/25 12:45) Ceftriaxone 1gm/50ml D5w (Rocephin) (05/26/25 09:00) Potassium Chl 20meq/100ml (05/25/25 12:45) Magnesium Sulfate 1gm/100ml (05/25/25 12:45) (Nf) Atorvastatin Calcium (05/26/25 10:00) (Nf) Levothyroxine Sodium (05/26/25 10:00) Vital Signs Date Time Temp Pulse Resp B/P (MAP) Pulse Ox O2 Delivery O2 Flow Rate FiO2 05/25/25 12:15 91 22 107/77 (87) 92 05/25/25 12:00 97.9 91 23 96/70 (79) 92 97.9 05/25/25 11:30 94 17 71/34 (46) 92 05/25/25 11:15 93 19 91/52 (65) 92 05/25/25 11:00 96 22 91/52 (65) 92 05/25/25 10:45 94 26 96/48 (64) 94 05/25/25 10:30 102/52 05/25/25 10:30 89 28 99/51 (67) 92 05/25/25 10:25 99/51 05/25/25 10:20 100/51 05/25/25 10:15 94 18 104/53 (70) 94 05/25/25 10:15 104/53 05/25/25 10:10 99/51 05/25/25 10:05 89/50 05/25/25 10:00 103/50 05/25/25 10:00 96 31 103/50 (67) 95 05/25/25 09:55 102/46 05/25/25 09:50 101/46 05/25/25 09:45 93 15 85/48 (60) 90 05/25/25 09:45 85/38 05/25/25 09:30 89/41 05/25/25 09:30 105 30 89/41 (57) 92 05/25/25 09:25 99/28 05/25/25 09:20 79/35 05/25/25 09:15 105 30 70/26 (41) 92 05/25/25 09:15 70/26 05/25/25 09:10 92/40 05/25/25 09:09 17 81 Room Air* 0 21 05/25/25 09:05 83/35 05/25/25 09:05 98.1 108 18 83/35 (51) 92 98.1 05/25/25 09:00 80/35 05/25/25 08:55 83/33 05/25/25 08:48 101/23 05/25/25 06:50 100.1 130 22 51/90 96 100.1 05/25/25 06:49 Room Air* 0 21 05/25/25 06:45 97.5 92 29 70/29 (43) 92 97.5 05/25/25 06:38 121 05/25/25 06:34 121 Laboratory Tests Test 05/25/25 08:41 05/25/25 10:48 Lactic Acid Level 8.5 mmol/L (0.4-2.0) *H 6.7 mmol/L (0.4-2.0) *H White Blood Count 13.7 10^3/uL (4.4-10.8) H Medications Medications Dose Ordered Sig/Linda Route Start Time Stop Time Status Last Admin Dose Admin Cefepime HCl 50 ml @ 50 mls/hr ONCE ONCE IV 05/25/25 07:00 05/25/25 07:59 DC 05/25/25 08:27 50 MLS/HR Clindamycin Phosphate 50 ml @ 50 mls/hr ONCE ONCE IV 05/25/25 08:15 05/25/25 09:14 DC 05/25/25 08:29 50 MLS/HR Diagnostic Test (Pha) 1 strip Q90MIN 05/25/25 07:30 05/25/25 11:26 1 STRIP Insulin Glargine 15 units ONCE ONCE SC 05/25/25 06:45 05/25/25 06:49 DC 05/25/25 10:03 15 UNITS Insulin Human (Reg)/Sodium Chloride 100 ml @ 0.5 mls/hr Q24H IV 05/25/25 06:45 05/25/25 09:50 0.5 MLS/HR Insulin Human Regular 10 units ONCE ONCE IV 05/25/25 08:45 05/25/25 08:46 DC 05/25/25 08:49 10 UNITS Norepinephrine Bitartrate 250 ml @ 3.75 mls/hr Q24H IV 05/25/25 08:45 05/25/25 10:13 DC 05/25/25 08:48 3.75 MLS/HR Norepinephrine Bitartrate 16 mg/ Sodium Chloride 250 ml @ 1.875 mls/ hr Q24H IV 05/25/25 09:30 05/25/25 11:00 20.625 MLS/HR Ondansetron HCl 4 mg ONCE ONCE IV 05/25/25 09:30 05/25/25 09:31 DC 05/25/25 09:39 4 MG Piperacillin Sod/ Tazobactam Sod 100 ml @ 100 mls/hr ONCE ONCE IV 05/25/25 08:00 05/25/25 08:59 DC 05/25/25 08:27 100 MLS/HR Sodium Chloride 1,000 ml @ 150 mls/hr Q6H40M ONCE IV 05/25/25 06:45 05/25/25 13:24 05/25/25 08:29 150 MLS/HR Sodium Chloride 1,000 ml @ 150 mls/hr Q6H40M ONCE IV 05/25/25 08:00 05/25/25 14:39 05/25/25 08:28 150 MLS/HR Sodium Chloride 1,000 ml @ 1,000 mls/hr Q1H ONCE IV 05/25/25 06:45 05/25/25 07:44 DC 05/25/25 08:28 1,000 MLS/HR Sodium Chloride 1,000 ml @ 1,000 mls/hr Q1H ONCE IVB 05/25/25 08:00 05/25/25 08:59 DC 05/25/25 08:28 1,000 MLS/HR Assessment/Plan Assessment/Plan Assessment DKA Leukocytosis likely due to UTI Hypokalemia Anion gap open CARMEN Positive thrombosis in the cephalic vein Lactic acidosis with sepsis Acute encephalopathy Acute hypoxic respiratory failure History of diabetes History of hyperlipidemia History of hypertension History of right axillary tumor removal History of lung cancer status post right lower lobe lobectomy History of brain tumors History of brain bleeds History of 2 skull fractures History of colon surgery Plan Admit to ICU Supportive oxygen Vasopressor to keep maps greater than 65 IV antibiotics-ceftriaxone Mag level Replete lytes Insulin drip Lactic level noted Zosyn and Cefepime given in ED Antiemetics C diff ordered in ED stool OB ordered in ED Flexi Seal noted Urine culture Blood cultures Ultrasound right upper extremity noted CT head noted Beta hydroxy EKG PT/PTT Home medications reconciled DVT prophylaxis-Lovenox PUD prophylaxis-not indicated no history of GERD or GI bleed Discussed plan of care with patient, patient's daughter, and nurse [id number] Preventive counseling healthy eating habits, physical activity, and regular checkups Plan discussed with: Patient My Orders Orders - SIOBHAN ACEVEDO [employer] Procedure Category Date Status Time Sodium Chloride 0.9% PHA 05/25/25 Logged 12:45 Sodium Chloride 0.9% PHA 05/25/25 Logged 16:45 Sodium Chloride 0.9% PHA 05/25/25 Logged 18:45 Insulin Drip 100 PHA 05/25/25 Logged Unit/100ml (Myxredlin 12:45 Dextrose 50% Syringe PHA 05/25/25 Logged 12:45 Glucose Blood PHA 05/25/25 Logged (Accu-Chek Comfort 13:30 Complete Blood Count LAB 05/25/25 Logged 12:37 Basic Metabolic Panel LAB 05/25/25 Logged 12:37 Phosphorus LAB 05/25/25 Logged 12:37 Magnesium LAB 05/25/25 Logged 12:37 Osmolality, Serum LAB 05/25/25 Logged 12:37 Abg W/ Co-Ox RT 05/25/25 Logged 12:37 Basic Metabolic Panel LAB 05/25/25 Logged 18:37 Basic Metabolic Panel LAB 05/26/25 Verified 00:37 Basic Metabolic Panel LAB 05/26/25 Verified 06:37 Neurological MEKHI 05/25/25 In Process Assessment 12:37 Vs/Hemodynamics MEKHI 05/25/25 In Process 12:37 Acetone LAB 05/25/25 Logged 12:37 Insulin Lantus PHA 05/25/25 Logged (Glargine) (Lantus) 12:45 Insulin Lantus PHA 05/26/25 Logged (Glargine) (Lantus) 10:00 Admit ADMIT 05/25/25 Transmitted 12:37 Allergies MEKHI 05/25/25 In Process 12:37 Code Status CODE 05/25/25 Transmitted 12:37 Ondansetron Hcl PHA 05/25/25 Logged (Zofran) 12:45 Enoxaparin Sodium PHA 05/26/25 Logged (Lovenox) 10:00 Complete Blood Count LAB 05/26/25 Verified 04:00 Comprehensive LAB 05/26/25 Verified Metabolic Panel 04:00 Acetaminophen Tablet PHA 05/25/25 Logged (Tylenol Tablet) 12:45 Ceftriaxone 1gm/50ml PHA 05/26/25 Logged D5w (Rocephin) 09:00 Potassium Chl PHA 05/25/25 Logged 20meq/100ml 12:45 Magnesium Sulfate PHA 05/25/25 Logged 1gm/100ml 12:45 (Nf) Atorvastatin PHA 05/26/25 Verified Calcium 10:00 (Nf) Levothyroxine PHA 05/26/25 Verified Sodium 10:00 Date of Service: May 25, 2025 Billing Provider: SIOBHAN ACEVEDO Common Visit Codes: [id number] INP/OBS CARE (HIGH) Secondary Visit Codes: [id number] COUNSELING IND SIOBHAN ACEVEDO May 25, 2025 13:09
[2025-05-25 13:23] LABS: Hematocrit 44.8 % (36.0-46.0); Hemoglobin 14.6 g/dL (12.2-16.2); Mean Corpuscular Hemoglobin 30.6 pg (28.0-32.0); Mean Corpuscular Volume 94.2 fL (80.0-100.0); Nucleated Red Blood Cells % 0.1 %
[2025-05-25 13:25] LABS: Sodium 142 mmol/L (136-145)
[2025-05-25 13:26] LABS: Anion Gap 16 (5-15); Carbon Dioxide 19 mmol/L (20-31); Chloride 107 mmol/L (98-107); Potassium 2.7 mmol/L (3.5-5.1)
[2025-05-25 13:27] LABS: Calcium 8.6 mg/dL (8.7-10.4)
[2025-05-25 13:31] LABS: BUN/Creatinine Ratio 10.1 (10.0-20.0)
[2025-05-25] MEDS: PHENYLEPHRINE IV 250 ML IV ONE (13:31)
[2025-05-25 13:34] LABS: Blood Urea Nitrogen 26 mg/dL (9-23); Glucose 141 mg/dL (74-106); Magnesium 1.1 mg/dL (1.6-2.6)
[2025-05-25] MEDS ORDERED: CEFEPIME 1GM/ 50ML 50 ML IV SCH (14:00)
[2025-05-25] MEDS: POTASSIUM CHL 20MEQ/100ML 100 ML IV SCH (14:42)
[2025-05-25] MEDS: MAGNESIUM SULFATE 1GM/100ML 100 ML IV ONE (14:43)
[2025-05-25] MEDS ORDERED: SODIUM CHLORIDE 0.9% 1,000 ML IV SCH ×2 (16:45→18:45)
[2025-05-25] MEDS: PHENYLEPHRINE INJ 80 MG in SODIUM CHL 0.9% 242 ML IV SCH (17:45)
[2025-05-25 19:07] LABS: Potassium 3.9 mmol/L (3.5-5.1); Sodium 140 mmol/L (136-145)
[2025-05-25 19:08] LABS: Anion Gap 14 (5-15)
[2025-05-25 19:13] LABS: BUN/Creatinine Ratio 10.5 (10.0-20.0)
[2025-05-25 19:21] LABS: Blood Urea Nitrogen 30 mg/dL (9-23); Calcium 8.1 mg/dL (8.7-10.4); Carbon Dioxide 16 mmol/L (20-31); Chloride 110 mmol/L (98-107); Glucose 163 mg/dL (74-106)
[2025-05-25] MEDS: NOREPINEPHRINE BITARTRATE 32 MG in SODIUM CHL 0.9% 218 ML IV SCH (20:27)
[2025-05-25] MEDS: InsuLIN REG 1unit/0.01ml Soln (100units/ml) SC SCH (23:00)
[2025-05-25] MEDS: VASOPRESSIN 20 UNITS in SODIUM CHL 0.9% 99 ML IV SCH (23:01)
[2025-05-26] VITALS (96 sets, daily range): BP systolic 70–133; BP diastolic 23–73; PULSE 91–121; RESP 7–45; TEMP 97.9–99; O2SAT 88–100
[2025-05-26] MEDS: ONDANSETRON HCL 4 MG/2 ML VIAL IV PRN (01:58)
--- NOTE | 2025-05-26 03:07 | DVH ---
CHEST RADIOGRAPH Indication: POSSIBLE ASPIRATION Technique: 1 view Comparison: XY CHEST PORTABLE on DOS: 05/25/25, XY CHEST PORTABLE on DOS: 01/22/24 FINDINGS: Lines and Tubes: External leads. Lungs: No evidence of acute consolidation. Similar scattered reticular opacities in both lungs. Pleura: No effusion or pneumothorax. Cardiomediastinal contours: Unremarkable. Other: No acute osseous abnormality. IMPRESSION: 1. No acute cardiopulmonary abnormality or significant change from prior exam.
[2025-05-26 03:09] LABS: Base Excess -18.8 mmol/L (-2.0-3.0)
[2025-05-26] MEDS: SODIUM BICARB 8.4% 50Meq/50ml SYR Vial IV ONE ×5 (03:28→20:33)
[2025-05-26] MEDS: SODIUM BICARB 8.4% 50Meq/50ml SYR INJ ONE (03:37)
[2025-05-26 03:42] LABS: Hematocrit 44.7 % (36.0-46.0); Hemoglobin 14.7 g/dL (12.2-16.2); Mean Corpuscular Hemoglobin 31.3 pg (28.0-32.0); Mean Corpuscular Volume 95.4 fL (80.0-100.0); Nucleated Red Blood Cells % 0.2 %
[2025-05-26] MEDS: SOD CHL IV SCH ×2 (03:55→17:00)
[2025-05-26] MEDS: SODIUM BICARB IV SCH ×2 (03:55→17:00)
[2025-05-26] MEDS: D5 IV SCH ×2 (03:55→17:00)
[2025-05-26] MEDS: InsuLIN REG 1unit/0.01ml Soln (100units/ml) SC SCH (03:56)
[2025-05-26] MEDS: ACCU-CHEK COMFORT CURVE STRIP VI SCH (03:56)
[2025-05-26 03:57] LABS: Albumin 3.3 g/dL (3.2-4.8); Alkaline Phosphatase 80 U/L (46-116); Anion Gap 21 (5-15); BUN/Creatinine Ratio 8.7 (10.0-20.0); Chloride 105 mmol/L (98-107); Magnesium 1.7 mg/dL (1.6-2.6); Potassium 4.9 mmol/L (3.5-5.1); Sodium 138 mmol/L (136-145); Total Protein 5.9 g/dL (5.7-8.2)
[2025-05-26 03:58] LABS: Bilirubin, Total 0.7 mg/dL (0.2-1.0)
[2025-05-26 04:13] LABS: Alanine Aminotransferase 509 U/L (7-40); Blood Urea Nitrogen 33 mg/dL (9-23); Calcium 8.3 mg/dL (8.7-10.4); Carbon Dioxide 12 mmol/L (20-31); Glucose 154 mg/dL (74-106)
[2025-05-26] MEDS: LEVOTHYROXINE SODIUM 50 MCG TAB PO SCH (06:13)
[2025-05-26] MEDS: ATORVASTATIN 20 MG TAB PO SCH (08:17)
[2025-05-26] MEDS: ENOXAPARIN SOD 40 MG/0.4 ML SYRINGE SC SCH (08:22)
[2025-05-26] MEDS: ONDANSETRON HCL 4 MG/2 ML VIAL ONE (08:22)
[2025-05-26] MEDS: cefTRIAXone 1GM/50ML D5W 50 ML IV SCH (08:22)
[2025-05-26] MEDS ORDERED: INSULIN LANTUS (GLARGINE) 1 /0.01ml (100units/ml) SC SCH ×2 (10:00)
[2025-05-26 11:34] LABS: Alkaline Phosphatase 85 U/L (46-116); Anion Gap 17 (5-15); BUN/Creatinine Ratio 9.8 (10.0-20.0); Chloride 103 mmol/L (98-107); Potassium 4.8 mmol/L (3.5-5.1); Sodium 139 mmol/L (136-145)
[2025-05-26 11:35] LABS: Bilirubin, Total 0.7 mg/dL (0.2-1.0)
[2025-05-26 11:36] LABS: Albumin 2.9 g/dL (3.2-4.8); Blood Urea Nitrogen 39 mg/dL (9-23); Calcium 7.6 mg/dL (8.7-10.4); Carbon Dioxide 19 mmol/L (20-31); Magnesium 1.5 mg/dL (1.6-2.6); Total Protein 5.0 g/dL (5.7-8.2)
[2025-05-26 11:53] LABS: Glucose 245 mg/dL (74-106)
[2025-05-26 11:54] LABS: Alanine Aminotransferase 2349 U/L (7-40)
[2025-05-26 11:56] LABS: Hematocrit 40.9 % (36.0-46.0); Hemoglobin 13.5 g/dL (12.2-16.2); Mean Corpuscular Hemoglobin 31.6 pg (28.0-32.0); Mean Corpuscular Volume 95.3 fL (80.0-100.0); Nucleated Red Blood Cells % 0.1 %
[2025-05-26] MEDS: MORPHINE SULFATE INJ 2 MG/ml SYRG IV PRN (13:20)
--- NOTE | 2025-05-26 14:33 | DVH ---
Technique: Real-time ultrasound imaging of the abdomen was performed with grayscale and color Doppler . Indication: ELEVATED LIVER ENZYMES Comparison: None Findings: Liver measures 15 cm. It is increased in echogenicity and echotexture without focal mass. Portal vei n is normal in caliber and demonstrates normal hepatopetal flow. Gallbladder demonstrates cholelithiasis. There is no pericholecystic fluid. The wall thickness is nor mal. The common bile duct measures 4 mm. No intrahepatic biliary ductal dilatation. The right kidney measures 11.1 cm. There is no hydronephrosis or sonographic evidence of nephrolithia sis. The visualized portion of the pancreas is unremarkable. The visualized portion of the IVC is unremarkable. Small right pleural effusion. Impression: Echogenic liver which can be seen with hepatic steatosis, cirrhosis. Cholelithiasis Small right pleural effusion.
[2025-05-26] MEDS: MAGNESIUM SULFATE 1GM/100ML 100 ML IV SCH (14:47)
--- NOTE | 2025-05-26 16:09 | DVHPN2 ---
Subjective Assuming the care of the patient from today onwards. Sign of taken from the hospitalist. This is a 75-year-old female who initially presented to the hospital with altered mental status found to have severe diabetic ketoacidosis as well as septic shock secondary to probable UTI. Patient is currently on two pressors, was on three vasopressors, one vasopressor is off. Daughter at bedside. Patient's remains confused. Changes from previous H/P or p: No Changes Objective Vitals Vital Signs Date Time Temp Pulse Resp B/P (MAP) Pulse Ox O2 Delivery O2 Flow Rate FiO2 05/26/25 15:00 106 20 98/44 (62) 98 05/26/25 14:00 Nasal Cannula* 2 28 05/26/25 12:00 99.0 99.0 Intake/Output Intake and Output 05/26/25 07:00 Intake Total 2968.349 ml Output Total 3000 ml Balance -31.651 ml Intake Oral 0 ml IV Total 2968.349 ml Tube Feeding 0 ml Output Urine Total 700 ml Stool Total 2300 ml Exam HEENT pupils are reactive Neck is supple CV is S1-S2 regular rate and rhythm Respiratory diminished breath sounds bases GI positive bowel sound Extremity no pedal edema, right upper extremity lymphedema [employer], does not follow commands, moving all four extremities. Medications Current Medications Medications Dose Ordered Sig/Linda Route Start Time Stop Time Status Last Admin Dose Admin Ondansetron HCl 4 mg Q4HP PRN IV 05/25/25 12:45 05/26/25 08:22 4 MG Enoxaparin Sodium 40 mg DAILY SC 05/26/25 10:00 05/26/25 08:22 40 MG Acetaminophen 650 mg Q6HP PRN PO 05/25/25 12:45 Ceftriaxone Sodium 50 ml @ 100 mls/hr DAILY@09 IV 05/26/25 09:00 05/26/25 08:22 100 MLS/HR Atorvastatin Calcium 40 mg DAILY PO 05/26/25 10:00 Levothyroxine Sodium 75 mcg QAM@0600 PO 05/26/25 06:00 05/26/25 06:13 75 MCG Dextrose 50 ml UD PRN IV 05/25/25 17:15 Norepinephrine Bitartrate 32 mg/ Sodium Chloride 250 ml @ 0.938 mls/ hr Q24H IV 05/25/25 17:15 05/26/25 08:23 14.063 MLS/HR Phenylephrine HCl 80 mg/Sodium Chloride 250 ml @ 7.5 mls/hr Q24H IV 05/25/25 17:45 05/26/25 08:23 33.75 MLS/HR Vasopressin 20 units/Sodium Chloride 100 ml @ 9 mls/hr Q11H7M IV 05/25/25 22:45 05/26/25 06:13 9 MLS/HR Diagnostic Test (Pha) 1 strip IQ4HR 05/26/25 04:00 05/26/25 12:18 1 STRIP Insulin Human Regular IQ4HR SC 05/26/25 04:00 05/26/25 15:40 6 UNITS Sodium Bicarbonate 150 ml/Dextrose/ Sodium Chloride 1,150 ml @ 100 mls/hr [id number] IV 05/26/25 03:30 05/26/25 14:47 100 MLS/HR Morphine Sulfate 2 mg Q4HPRN PRN IV 05/26/25 13:00 05/26/25 13:20 2 MG Magnesium Sulfate/ Dextrose 100 ml @ 100 mls/hr Q1HR IV 05/26/25 15:00 05/26/25 17:59 05/26/25 15:38 100 MLS/HR Laboratory Results Laboratory Tests 05/26/25 11:00 05/26/25 11:37 Chemistry Test 05/25/25 18:27 05/26/25 03:18 05/26/25 11:00 Calcium Level 8.1 mg/dL (8.7-10.4) L 8.3 mg/dL (8.7-10.4) L 7.6 mg/dL (8.7-10.4) L Albumin 3.3 g/dL (3.2-4.8) 2.9 g/dL (3.2-4.8) L Magnesium Level 1.7 mg/dL (1.6-2.6) 1.5 mg/dL (1.6-2.6) L Total Protein 5.9 g/dL (5.7-8.2) 5.0 g/dL (5.7-8.2) L LFT Test 05/26/25 03:18 05/26/25 11:00 Alanine Aminotransferase (ALT) 509 U/L (7-40) H 2349 U/L (7-40) H Alkaline Phosphatase 80 U/L (46-116) 85 U/L (46-116) Aspartate Amino Transferase (AST) 972 U/L (13-40) H > 6000 U/L (13-40) H Total Bilirubin 0.7 mg/dL (0.2-1.0) 0.7 mg/dL (0.2-1.0) HgA1c, TSH Test 05/26/25 11:36 Hemoglobin A1c > 14.0 % A1C (<5.7) H Urinalysis Test 05/25/25 08:07 Urine Color Colorless (Yellow) Urine Clarity Turbid (Clear) H Urine pH 5.5 (5.0-9.0) Urine Specific [place] 1.008 (1.001-1.035) Urine Protein Negative (Negative) Urine Ketones Negative (Negative) Urine Blood Trace /uL (Negative) H Urine Nitrite 2+ (Negative) H Urine Bilirubin Negative (Negative) Urine Urobilinogen Normal mg/dL (Negative) Urine Leukocyte Esterase 3+ /uL (Negative) Urine RBC 6 /hpf (0 - 4) Urine Microscopic WBC 366 /HPF (0-5) H Urine Squamous Epithelial Cells None seen /hpf (<5) Urine Bacteria Few /hpf (None Seen) H Urine Glucose 4+ mg/dL (Normal) H Blood Gas Results Test 05/26/25 02:58 Arterial Blood pH 7.170 (7.350-7.450) FiO2 % 64.0 Microbiology Microbiology Date/Time Source Procedure Growth Status 05/25/25 18:00 Nose MRSA Screen - Final Complete 05/25/25 09:15 Stool Clostridium difficile Toxin Assay - Final Complete 05/25/25 08:41 Blood Blood Culture - Preliminary NO GROWTH AFTER 24 HOURS OF INCUBATION. Resulted 05/25/25 08:07 Urine - [place] Urine Culture - Preliminary Resulted Assessment/Plan Assessment/Plan 75-year-old female with a known history of diabetes mellitus type 2 currently only on metformin at home as per daughter, dyslipidemia, hypothyroidism who was noted by daughter with a altered mental status and sitting in her own feces at home, who was brought in by paramedics found to have 1. Septic shock suspect secondary to Gram-negative UTI 2. Acute metabolic/septic encephalopathy 3. Severe diabetic ketoacidosis 4. Transaminitis suspected shock liver/ischemic hepatitis secondary to hypotension requiring vasopressors. 5. Gram-negative UTI 6. Metabolic acidosis secondary to diabetic ketoacidosis 7. Leukocytosis 8. Acute kidney injury with a oliguria -IV antibiotics follow up urine culture blood cultures, nephrology consultation, IV bicarb drip -insulin drip Check BMP Mag and phos q.6 hours replace as needed. -patient's remains critical pulse remain guarded, titrate vasopressors for systolic blood pressure of more than 90 or with a map of >65. -patient has one daughter at bedside who was updated regarding current plan of care all the questions were answered. Plan discussed with: Patient, Daughter My Orders Orders - ESVIN PEREZ MD Procedure Category Date Status Time Acute Hepatitis Panel LAB 05/26/25 In Process 12:54 Abdomen Limited US 05/26/25 Resulted 12:54 * [facility] CONS 05/26/25 Transmitted 12:54 Morphine Sulfate PHA 05/26/25 In Process Injection 13:00 *Dr. Campos Knight CONS 05/26/25 Transmitted -[place] 14:14 Magnesium Sulfate PHA 05/26/25 In Process 1gm/100ml 15:00 Date of Service: May 26, 2025 Billing Provider: ESVIN PEREZ MD Common Visit Codes: [id number] INP/OBS CARE(HIGH) ESVIN PEREZ MD May 26, 2025 16:09
[2025-05-26] MEDS: SODIUM PHOSPHATES 40 MEQ in D5W 5% 250 ML IV ONE (17:00)
--- NOTE | 2025-05-26 17:11 | DVHINCON2 ---
Date of service: May 26, [address] Cook Reason for Consultation Acute kidney injury History of Present Illness Patient is 75-year-old female with past medical history DM, High Lipids, and HTN is admitted for altered level of consciousness. Patient found down admitted to the ICU in septic shock. Patient intubated on ventilator history obtained from the chart and the primary nurse. On admission patient found to have elevated BUN and creatinine, Nephrology is consulted for acute kidney injury Past Medical History PAST MEDICAL HISTORY: DM, High Lipids, HTN Past Surgical History Not known Allergies: Coded Allergies: NO KNOWN ALLERGIES (Unverified , 09/12/15) Home Meds Reported Medications Atorvastatin Calcium (ATORVASTATIN CALCIUM) 40 Mg Tab, 1 TAB PO DAILY 05/25/25 Levothyroxine Sodium (Levothyroxine Sodium) 75 Mcg Tab, 1 TAB PO DAILY 05/25/25 Current Medications Current Medications Medications (Trade) Dose Ordered Sig/Linda Route PRN Reason Start Time Stop Time Status Last Admin Morphine Sulfate 2 mg Q4HPRN PRN IV MODERATE PAIN (4-6 PAIN SCALE) 05/26/25 13:00 05/27/25 10:27 DC 05/26/25 13:20 Magnesium Sulfate/ Dextrose 100 ml @ 100 mls/hr Q1HR IV 05/26/25 15:00 05/26/25 17:59 DC 05/26/25 17:00 Sodium Bicarbonate 150 ml/Dextrose/ Sodium Chloride 1,150 ml @ 125 mls/hr Q9H12M IV 05/26/25 17:00 05/26/25 23:40 Octreotide Acetate (SandoSTATIN) 100 mcg TID SUBCUT 05/26/25 17:00 05/27/25 06:18 Epinephrine HCl 250 ml @ 7.5 mls/hr Q24H IV 05/26/25 20:30 05/27/25 09:01 Calcium Gluconate/ Sodium Chloride 50 ml @ 100 mls/hr Q30M IV 05/27/25 00:45 05/27/25 01:44 DC 05/27/25 02:30 Doxycycline Hyclate 100 ml @ 50 mls/hr Q12H IV 05/27/25 08:30 05/27/25 08:30 Bumetanide (Bumex Injection) 2 mg DAILY IV 05/27/25 10:15 Morphine Sulfate 2 mg Q2HPRN PRN IV MODERATE PAIN (4-6 PAIN SCALE) 05/27/25 10:30 05/27/25 10:46 Lorazepam (Ativan Inj) 1 mg Q2HP PRN IV ANXIETY 05/27/25 10:30 05/27/25 10:46 Family History: Patient reports no known family medical history. Review of Systems Can not be obtained H&P Exam Vital Signs/I&O Vital Sign Date Time Temp Pulse Resp B/P (MAP) Pulse Ox O2 Delivery O2 Flow Rate FiO2 05/27/25 11:00 72 12 05/27/25 10:45 95 05/27/25 10:00 Bi-Pap+ 85 85 05/27/25 08:00 8 05/27/25 08:00 98.8 98.8 Intake and Output 05/26/25 05/27/25 19:00 07:00 Intake Total 1653.349 ml 889.943 ml Output Total 1030 ml 30 ml Balance 623.349 ml 859.943 ml Intake Oral 0 ml IV Total 1653.349 ml 889.943 ml Output Urine Total 80 ml 30 ml Stool Total 750 ml 0 ml Emesis 200 ml Physical Exam Patient in moderate respiratory distress on a BiPAP Lungs clear to auscultation bilaterally Cardiac exam is tachycardic GI soft nontender Tucker catheter Extremity no clubbing cyanosis or edema Neuro can not assess due to respiratory distress Labs/Diagnostic Data Labs/Diagnostic Data Laboratory Tests Test 05/27/25 08:00 05/27/25 07:34 05/27/25 07:11 05/27/25 03:51 Range/Units Lactic Acid Level 10.9 *H 0.4-2.0 mmol/L Blood Gas Specimen Type Arterial Blood Gas Sample Site Right radial Blood Gas Patient Temperature 37.0 Arterial Blood Date Drawn [id number] Arterial Blood pH 7.359 7.350-7.450 Arterial Blood Partial Pressure CO2 35.7 32.0-45.0 mmHg Arterial Blood Partial Pressure O2 74.3 L 83.0-108.0 mmHg Arterial Blood HCO3 19.7 L 21.0-28.0 mmol/L Arterial Blood Oxygen Saturation 92.3 L 94.0-98.0 % Arterial Blood Base Excess -5.1 L -2.0-3.0 mmol/L Arterial Blood Oxyhemoglobin 91.8 L 94.0-98.0 % Arterial Blood Carboxyhemoglobin 0.2 L 0.5-1.5 % Arterial Blood Methemoglobin 0.3 0.0-1.5 % Jason Test Modified Blood Gas Total Hemoglobin 12.80 12.0-16.0 g/dL Blood Gas Liter Flow 12.00 Blood Gas Modality Oxymizer FiO2 % 82.0 POC Glucose 241 H 239 H 70-106 mg/dl Test 05/27/25 03:07 05/27/25 00:02 05/27/25 00:00 05/26/25 20:35 Range/Units White Blood Count 7.0 # 4.4-10.8 10^3/uL Red Blood Count 3.94 L 4.0-5.20 10^6/uL Hemoglobin 12.2 12.2-16.2 g/dL Hematocrit 37.0 36.0-46.0 % Mean Corpuscular Volume 94.0 80.0-100.0 fL Mean Corpuscular Hemoglobin 31.0 28.0-32.0 pg Mean Corpuscular Hemoglobin Concent 33.0 32.0-36.0 g/dL Red Cell Distribution Width 14.0 11.8-14.3 % Platelet Count 115 L 140-450 10^3/uL Mean Platelet Volume 8.8 6.9-10.8 fL Neutrophils (%) (Auto) 90.7 H 37.0-80.0 % Lymphocytes (%) (Auto) 3.8 L 10.0-50.0 % Monocytes (%) (Auto) 4.2 0.0-12.0 % Eosinophils (%) (Auto) 1.0 0.0-7.0 % Basophils (%) (Auto) 0.3 0.0-2.0 % Neutrophils # (Auto) 6.3 1.6-8.6 10 ^3/uL Lymphocytes # (Auto) 0.3 L 0.4-5.4 10 ^3/uL Monocytes # (Auto) 0.3 0-1.3 10 ^3/uL Eosinophils # (Auto) 0.1 0-0.8 10 ^3/uL Basophils # (Auto) 0 0-0.2 10 ^3/uL Nucleated Red Blood Cells 0.0 % Sodium Level 145 147 #H 136-145 mmol/L Potassium Level 3.9 3.4 L 3.5-5.1 mmol/L Chloride Level 100 107 98-107 mmol/L Carbon Dioxide Level 20 20 20-31 mmol/L Anion Gap 25 H 20 H 5-15 Blood Urea Nitrogen 42 H 35 H 9-23 mg/dL Creatinine 4.68 H 3.92 H 0.550-1.02 mg/dL Glomerular Filtration Rate Calc 9 11 >90 mL/min BUN/Creatinine Ratio 9.0 L 8.9 L 10.0-20.0 Serum Glucose 237 H 220 H 74-106 mg/dL Calcium Level 7.3 L 5.8 *L 8.7-10.4 mg/dL Magnesium Level 2.1 1.6-2.6 mg/dL POC Glucose 156 H 70-106 mg/dl Influenza Type A Antigen Negative Negative Influenza Type B Antigen Negative Negative SARS-CoV-2 Antigen (Rapid) Negative NEGATIVE Test 05/26/25 20:05 05/26/25 19:41 05/26/25 17:50 05/26/25 15:34 Range/Units POC Glucose 241 H 260 H 70-106 mg/dl Blood Gas Specimen Type Venous Blood Gas Sample Site Vbg - n/a Blood Gas Patient Temperature 37.0 Arterial Blood Date Drawn [id number] Jason Test N/a Venous Blood pH 7.215 L 7.320-7.430 Venous Blood pCO2 at Patient Temp 46.5 38.0-54.0 mmHg Venous Blood pO2 at Patient Temp < 36.5 23.0-48.0 mmHg Venous Blood HCO3 18.4 L 22.0-29.0 mmol/L Venous Blood Base Excess -9.3 L -2.0-3.0 mmol/L Blood Gas Liter Flow 8.00 Blood Gas Modality Oxymizer FiO2 % 64.0 Sodium Level 140 136-145 mmol/L Potassium Level 4.8 3.5-5.1 mmol/L Chloride Level 102 98-107 mmol/L Carbon Dioxide Level 19 L 20-31 mmol/L Anion Gap 19 H 5-15 Blood Urea Nitrogen 42 H 9-23 mg/dL Creatinine 4.40 H 0.550-1.02 mg/dL Glomerular Filtration Rate Calc 10 >90 mL/min BUN/Creatinine Ratio 9.5 L 10.0-20.0 Serum Glucose 263 H 74-106 mg/dL Calcium Level 7.1 L 8.7-10.4 mg/dL Phosphorus Level 6.5 H 2.4-5.1 mg/dL Magnesium Level 2.5 # 1.6-2.6 mg/dL Ammonia 25 11-32 umol/L B-Type Natriuretic Peptide 421.05 0-100 pg/mL Parathyroid Hormone (Intact) 250.4 H 18.4-80.1 pg/mL Test 05/26/25 12:16 05/26/25 11:37 05/26/25 11:36 05/26/25 11:00 Range/Units POC Glucose 248 H 70-106 mg/dl White Blood Count 9.6 # 4.4-10.8 10^3/uL Red Blood Count 4.29 4.0-5.20 10^6/uL Hemoglobin 13.5 12.2-16.2 g/dL Hematocrit 40.9 36.0-46.0 % Mean Corpuscular Volume 95.3 80.0-100.0 fL Mean Corpuscular Hemoglobin 31.6 28.0-32.0 pg Mean Corpuscular Hemoglobin Concent 33.1 32.0-36.0 g/dL Red Cell Distribution Width 14.1 11.8-14.3 % Platelet Count 135 L 140-450 10^3/uL Mean Platelet Volume 8.5 6.9-10.8 fL Neutrophils (%) (Auto) 87.5 H 37.0-80.0 % Lymphocytes (%) (Auto) 6.0 L 10.0-50.0 % Monocytes (%) (Auto) 5.6 0.0-12.0 % Eosinophils (%) (Auto) 0.6 0.0-7.0 % Basophils (%) (Auto) 0.3 0.0-2.0 % Neutrophils # (Auto) 8.4 1.6-8.6 10 ^3/uL Lymphocytes # (Auto) 0.6 0.4-5.4 10 ^3/uL Monocytes # (Auto) 0.5 0-1.3 10 ^3/uL Eosinophils # (Auto) 0.1 0-0.8 10 ^3/uL Basophils # (Auto) 0 0-0.2 10 ^3/uL Nucleated Red Blood Cells 0.1 % Hemoglobin A1c > 14.0 H <5.7 % A1C Sodium Level 139 136-145 mmol/L Potassium Level 4.8 3.5-5.1 mmol/L Chloride Level 103 98-107 mmol/L Carbon Dioxide Level 19 L 20-31 mmol/L Anion Gap 17 H 5-15 Blood Urea Nitrogen 39 H 9-23 mg/dL Creatinine 4.00 H 0.550-1.02 mg/dL Glomerular Filtration Rate Calc 11 >90 mL/min BUN/Creatinine Ratio 9.8 L 10.0-20.0 Serum Glucose 245 H 74-106 mg/dL Calcium Level 7.6 L 8.7-10.4 mg/dL Magnesium Level 1.5 L 1.6-2.6 mg/dL Total Bilirubin 0.7 0.2-1.0 mg/dL Aspartate Amino Transferase (AST) > 6000 H 13-40 U/L Alanine Aminotransferase (ALT) 2349 H 7-40 U/L Alkaline Phosphatase 85 46-116 U/L Total Protein 5.0 L 5.7-8.2 g/dL Albumin 2.9 L 3.2-4.8 g/dL Test 05/26/25 08:28 05/26/25 03:52 05/26/25 03:18 05/26/25 02:58 Range/Units POC Glucose 196 H 147 H 70-106 mg/dl White Blood Count 17.0 H 4.4-10.8 10^3/uL Red Blood Count 4.69 4.0-5.20 10^6/uL Hemoglobin 14.7 12.2-16.2 g/dL Hematocrit 44.7 36.0-46.0 % Mean Corpuscular Volume 95.4 80.0-100.0 fL Mean Corpuscular Hemoglobin 31.3 28.0-32.0 pg Mean Corpuscular Hemoglobin Concent 32.8 32.0-36.0 g/dL Red Cell Distribution Width 13.7 11.8-14.3 % Platelet Count 181 140-450 10^3/uL Mean Platelet Volume 9.0 6.9-10.8 fL Neutrophils (%) (Auto) 89.5 H 37.0-80.0 % Lymphocytes (%) (Auto) 5.1 L 10.0-50.0 % Monocytes (%) (Auto) 5.1 0.0-12.0 % Eosinophils (%) (Auto) 0.2 0.0-7.0 % Basophils (%) (Auto) 0.1 0.0-2.0 % Neutrophils # (Auto) 15.2 H 1.6-8.6 10 ^3/uL Lymphocytes # (Auto) 0.9 0.4-5.4 10 ^3/uL Monocytes # (Auto) 0.9 0-1.3 10 ^3/uL Eosinophils # (Auto) 0 0-0.8 10 ^3/uL Basophils # (Auto) 0 0-0.2 10 ^3/uL Nucleated Red Blood Cells 0.2 % Sodium Level 138 136-145 mmol/L Potassium Level 4.9 3.5-5.1 mmol/L Chloride Level 105 98-107 mmol/L Carbon Dioxide Level 12 L 20-31 mmol/L Anion Gap 21 H 5-15 Blood Urea Nitrogen 33 H 9-23 mg/dL Creatinine 3.81 #H 0.550-1.02 mg/dL Glomerular Filtration Rate Calc 12 >90 mL/min BUN/Creatinine Ratio 8.7 L 10.0-20.0 Serum Glucose 154 H 74-106 mg/dL Calcium Level 8.3 L 8.7-10.4 mg/dL Magnesium Level 1.7 1.6-2.6 mg/dL Total Bilirubin 0.7 0.2-1.0 mg/dL Aspartate Amino Transferase (AST) 972 H 13-40 U/L Alanine Aminotransferase (ALT) 509 H 7-40 U/L Alkaline Phosphatase 80 46-116 U/L Total Protein 5.9 5.7-8.2 g/dL Albumin 3.3 3.2-4.8 g/dL Blood Gas Specimen Type Arterial Blood Gas Sample Site Right brachial Blood Gas Patient Temperature 37.0 Arterial Blood Date Drawn [id number] Arterial Blood pH 7.170 *L 7.350-7.450 Arterial Blood Partial Pressure CO2 21.5 L 32.0-45.0 mmHg Arterial Blood Partial Pressure O2 88.9 83.0-108.0 mmHg Arterial Blood HCO3 7.7 L 21.0-28.0 mmol/L Arterial Blood Oxygen Saturation 95.0 94.0-98.0 % Arterial Blood Base Excess -18.8 L -2.0-3.0 mmol/L Arterial Blood Oxyhemoglobin 94.5 94.0-98.0 % Arterial Blood Carboxyhemoglobin 0.5 0.5-1.5 % Arterial Blood Methemoglobin 0.0 0.0-1.5 % Jason Test Yes Blood Gas Total Hemoglobin 15.30 12.0-16.0 g/dL Blood Gas Liter Flow 8.00 Blood Gas Modality Oxymizer FiO2 % 64.0 Blood Gas Comments 0300 md zelaya Blood Gas Critical Value Read Back Yes Blood Gas Notified Whom teena Lyon Blood Gas Notified Time [id number] Blood Gas Notified By [employer] miracle quintana Test 05/25/25 22:49 05/25/25 18:27 05/25/25 16:52 05/25/25 14:55 Range/Units POC Glucose 157 H 117 H 118 H 70-106 mg/dl Sodium Level 140 136-145 mmol/L Potassium Level 3.9 3.5-5.1 mmol/L Chloride Level 110 H 98-107 mmol/L Carbon Dioxide Level 16 L 20-31 mmol/L Anion Gap 14 5-15 Blood Urea Nitrogen 30 H 9-23 mg/dL Creatinine 2.85 H 0.550-1.02 mg/dL Glomerular Filtration Rate Calc 17 >90 mL/min BUN/Creatinine Ratio 10.5 10.0-20.0 Serum Glucose 163 H 74-106 mg/dL Calcium Level 8.1 L 8.7-10.4 mg/dL Test 05/25/25 12:50 05/25/25 11:18 05/25/25 10:48 05/25/25 09:15 Range/Units White Blood Count 16.3 H 4.4-10.8 10^3/uL Red Blood Count 4.76 4.0-5.20 10^6/uL Hemoglobin 14.6 12.2-16.2 g/dL Hematocrit 44.8 36.0-46.0 % Mean Corpuscular Volume 94.2 80.0-100.0 fL Mean Corpuscular Hemoglobin 30.6 28.0-32.0 pg Mean Corpuscular Hemoglobin Concent 32.5 32.0-36.0 g/dL Red Cell Distribution Width 13.3 11.8-14.3 % Platelet Count 195 140-450 10^3/uL Mean Platelet Volume 8.1 6.9-10.8 fL Neutrophils (%) (Auto) 87.8 H 37.0-80.0 % Lymphocytes (%) (Auto) 6.1 L 10.0-50.0 % Monocytes (%) (Auto) 5.7 0.0-12.0 % Eosinophils (%) (Auto) 0.2 0.0-7.0 % Basophils (%) (Auto) 0.2 0.0-2.0 % Neutrophils # (Auto) 14.3 H 1.6-8.6 10 ^3/uL Lymphocytes # (Auto) 1.0 0.4-5.4 10 ^3/uL Monocytes # (Auto) 0.9 0-1.3 10 ^3/uL Eosinophils # (Auto) 0 0-0.8 10 ^3/uL Basophils # (Auto) 0 0-0.2 10 ^3/uL Nucleated Red Blood Cells 0.1 % Sodium Level 142 # 136-145 mmol/L Potassium Level 2.7 L 3.5-5.1 mmol/L Chloride Level 107 98-107 mmol/L Carbon Dioxide Level 19 L 20-31 mmol/L Anion Gap 16 H 5-15 Blood Urea Nitrogen 26 H 9-23 mg/dL Creatinine 2.57 H 0.550-1.02 mg/dL Glomerular Filtration Rate Calc 19 >90 mL/min BUN/Creatinine Ratio 10.1 10.0-20.0 Serum Glucose 141 H 74-106 mg/dL Serum Osmolality 298 278-298 mOsm/kg Calcium Level 8.6 L 8.7-10.4 mg/dL Phosphorus Level < 0.3 L 2.4-5.1 mg/dL Magnesium Level 1.1 L 1.6-2.6 mg/dL Beta-Hydroxybutyric Acid 0.111 < 0.4 mmol/L POC Glucose 233 H 70-106 mg/dl Lactic Acid Level 6.7 *H 0.4-2.0 mmol/L Stool Occult Blood Positive Negative Stool Occult Blood Sample #3 Negative Test 05/25/25 08:41 05/25/25 08:25 05/25/25 08:07 Range/Units White Blood Count 13.7 H 4.4-10.8 10^3/uL Red Blood Count 4.39 4.0-5.20 10^6/uL Hemoglobin 14.0 12.2-16.2 g/dL Hematocrit 42.5 36.0-46.0 % Mean Corpuscular Volume 96.6 80.0-100.0 fL Mean Corpuscular Hemoglobin 31.8 28.0-32.0 pg Mean Corpuscular Hemoglobin Concent 32.9 32.0-36.0 g/dL Red Cell Distribution Width 13.7 11.8-14.3 % Platelet Count 165 140-450 10^3/uL Mean Platelet Volume 8.3 6.9-10.8 fL Neutrophils (%) (Auto) 87.9 H 37.0-80.0 % Lymphocytes (%) (Auto) 8.5 L 10.0-50.0 % Monocytes (%) (Auto) 3.1 0.0-12.0 % Eosinophils (%) (Auto) 0.3 0.0-7.0 % Basophils (%) (Auto) 0.2 0.0-2.0 % Neutrophils # (Auto) 12.1 H 1.6-8.6 10 ^3/uL Lymphocytes # (Auto) 1.2 0.4-5.4 10 ^3/uL Monocytes # (Auto) 0.4 0-1.3 10 ^3/uL Eosinophils # (Auto) 0 0-0.8 10 ^3/uL Basophils # (Auto) 0 0-0.2 10 ^3/uL Nucleated Red Blood Cells 0.3 % Prothrombin Time 11.6 9.3-11.8 sec Prothrombin Time INR 1.11 0.9-1.15 Activated Partial Thromboplast Time 26.7 24.5-34.5 SEC Sodium Level 136 136-145 mmol/L Potassium Level 3.1 L 3.5-5.1 mmol/L Chloride Level 102 98-107 mmol/L Carbon Dioxide Level 15 L 20-31 mmol/L Anion Gap 19 H 5-15 Blood Urea Nitrogen 23 9-23 mg/dL Creatinine 2.66 H 0.550-1.02 mg/dL Glomerular Filtration Rate Calc 18 >90 mL/min BUN/Creatinine Ratio 8.6 L 10.0-20.0 Serum Glucose 418 *H 74-106 mg/dL Lactic Acid Level 8.5 *H 0.4-2.0 mmol/L Calcium Level 9.1 8.7-10.4 mg/dL Total Bilirubin 0.9 0.2-1.0 mg/dL Aspartate Amino Transferase (AST) 83 H 13-40 U/L Alanine Aminotransferase (ALT) 36 7-40 U/L Alkaline Phosphatase 81 46-116 U/L Total Protein 6.0 5.7-8.2 g/dL Albumin 3.5 3.2-4.8 g/dL Beta-Hydroxybutyric Acid 0.287 < 0.4 mmol/L Plasma/Serum Blood Alcohol < 3.0 <10 mg/dL POC Glucose 410 *H 70-106 mg/dl Urine Color Colorless Yellow Urine Clarity Turbid H Clear Urine pH 5.5 5.0-9.0 Urine Specific [place] 1.008 1.001-1.035 Urine Protein Negative Negative Urine Ketones Negative Negative Urine Blood Trace H Negative /uL Urine Nitrite 2+ H Negative Urine Bilirubin Negative Negative Urine Urobilinogen Normal Negative mg/dL Urine Leukocyte Esterase 3+ Negative /uL Urine RBC 6 0 - 4 /hpf Urine Microscopic WBC 366 H 0-5 /HPF Urine Squamous Epithelial Cells None seen <5 /hpf Urine Bacteria Few H None Seen /hpf Urine Glucose 4+ H Normal mg/dL Microbiology Date/Time Source Procedure Growth Status 05/25/25 18:00 Nose MRSA Screen - Final Complete 05/25/25 09:15 Stool Clostridium difficile Toxin Assay - Final Complete Assessment Acute kidney injury superimposed Chronic Kidney Disease secondary hemodynamic mediated Acute respiratory failure, patient intubated on ventilator Septic shock UTI Uncontrolled diabetes mellitus Hyperglycemia Metabolic acidosis Hypophosphatemia Hypokalemia Hypomagnesemia Liver cirrhosis Hypoalbuminemia Recommendations Closely monitor fluid and electrolytes Avoid nephrotoxic medication Tucker catheter Strict I&Os IV fluids with bicarb KCL replacement Sodium phosphate IV piggyback Magnesium sulfate IV piggyback IV pressors for BP support Keep MAP > 65 mm Hg Octreotide 100 mcg SQ TID Insulin sliding scale IV antibiotics We will continue to follow Patient seen and examined by myself in the ICU bed 11. I discussed my plan of care with the primary nurse at the bedside I would like to thank Dr. Cook consult, will follow up Critical care time 55 minutes Plan discussed with: Other (Nurse) NASEEM GIPSON MD May 26, 2025 17:11
--- NOTE | 2025-05-26 18:13 | DVH ---
INDICATION: nikky TECHNIQUE: Multiple real-time sonographic images of the kidneys and bladder were obtained. COMPARISON: None FINDINGS: RIGHT kidney measures 10.2 cm in length. No hydronephrosis. LEFT kidney measures 11.5 cm in length. No hydronephrosis. No large intraluminal masses are seen in the bladder. Tucker catheter in the bladder in the bladder is empty IMPRESSION: 1. 10.2 cm long right kidney 11.5 cm long left kidney. 2. Tucker catheter in the bladder in the bladder is empty.
[2025-05-26 18:17] LABS: Chloride 102 mmol/L (98-107); Potassium 4.8 mmol/L (3.5-5.1); Sodium 140 mmol/L (136-145)
[2025-05-26 18:18] LABS: Anion Gap 19 (5-15)
[2025-05-26] MEDS: OCTREOTIDE ACETATE 100 MCG/ML VL SUBCUT SCH (18:19)
[2025-05-26 18:23] LABS: BUN/Creatinine Ratio 9.5 (10.0-20.0)
[2025-05-26 18:24] LABS: Magnesium 2.5 mg/dL (1.6-2.6)
[2025-05-26 18:25] LABS: Blood Urea Nitrogen 42 mg/dL (9-23); Calcium 7.1 mg/dL (8.7-10.4); Carbon Dioxide 19 mmol/L (20-31); Glucose 263 mg/dL (74-106)
[2025-05-26] MEDS: EPINEPHrine HCL 250 ML IV ONE (20:28)
[2025-05-26] MEDS: EPINEPHrine HCL 250 ML IV SCH (20:33)
[2025-05-26 21:14] LABS: COVID19 ANTIGEN SOFIA FIA NEGATIVE (NEGATIVE)
[2025-05-27] VITALS (52 sets, daily range): BP systolic 72–128; BP diastolic 25–80; PULSE 72–114; RESP 6–43; TEMP 98.2–98.8; O2SAT 79–99
[2025-05-27 00:24] LABS: Chloride 107 mmol/L (98-107)
[2025-05-27 00:25] LABS: Anion Gap 20 (5-15)
[2025-05-27 00:26] LABS: Carbon Dioxide 20 mmol/L (20-31); Potassium 3.4 mmol/L (3.5-5.1); Sodium 147 mmol/L (136-145)
[2025-05-27 00:27] LABS: Calcium 5.8 mg/dL (8.7-10.4)
[2025-05-27 00:30] LABS: BUN/Creatinine Ratio 8.9 (10.0-20.0)
[2025-05-27 00:31] LABS: Blood Urea Nitrogen 35 mg/dL (9-23); Glucose 220 mg/dL (74-106)
[2025-05-27] MEDS: CALCIUM GLUC 1,000mg/50ml-NS 50 ML IV SCH (01:45)
[2025-05-27 03:53] LABS: Hematocrit 37.0 % (36.0-46.0); Hemoglobin 12.2 g/dL (12.2-16.2); Mean Corpuscular Hemoglobin 31.0 pg (28.0-32.0); Mean Corpuscular Volume 94.0 fL (80.0-100.0); Nucleated Red Blood Cells % 0.0 %
[2025-05-27 04:02] LABS: Anion Gap 25 (5-15); Carbon Dioxide 20 mmol/L (20-31); Chloride 100 mmol/L (98-107); Potassium 3.9 mmol/L (3.5-5.1)
[2025-05-27 04:04] LABS: Sodium 145 mmol/L (136-145)
[2025-05-27 04:05] LABS: Calcium 7.3 mg/dL (8.7-10.4)
[2025-05-27 04:08] LABS: BUN/Creatinine Ratio 9.0 (10.0-20.0); Blood Urea Nitrogen 42 mg/dL (9-23); Glucose 237 mg/dL (74-106); Magnesium 2.1 mg/dL (1.6-2.6)
--- NOTE | 2025-05-27 05:44 | DVH ---
CHEST RADIOGRAPH Indication: SOB Technique: 1 view Comparison: XY CHEST XRAY 1 VIEW on DOS: 05/26/25, XY CHEST PORTABLE on DOS: 05/25/25, XY CHEST PORTABL E on DOS: 01/22/24 FINDINGS: Lines and Tubes: External leads. Lungs/Pleura: Worsening interstitial and peripheral consolidative opacities in the right lung with lanier spected small pleural effusion. No acute finding of the left lung. Cardiomediastinum: Unchanged, mildly enlarged. Other: Unchanged osseous structures. IMPRESSION: 1. Worsening mixed pulmonary opacities in the right lung and suspected small pleural effusion may rep resent edema or infection. 2. No other significant interval change from the previous study.
[2025-05-27 07:48] LABS: Base Excess -5.1 mmol/L (-2.0-3.0)
[2025-05-27] MEDS: DOXYCYCLINE 100MG/100ML 100 ML IV SCH (08:30)
[2025-05-27 08:36] LABS: Lactic Acid w/Reflex 10.9 mmol/L (0.4-2.0)
[2025-05-27] MEDS: SODIUM BICARB 8.4% 50Meq/50ml SYR Vial IV ONE (08:47)
[2025-05-27] MEDS ORDERED: BUMETANIDE 2.5mg/10ml (0.25 mg/ml) INJ IV SCH (10:15)
[2025-05-27] MEDS: MORPHINE SULFATE INJ 2 MG/ml SYRG IV PRN (10:46)
[2025-05-27] MEDS: LORazepam 2MG/ML-1ML VIAL IV PRN (10:46)
--- NOTE | 2025-05-27 11:24 | DVHPN2 ---
Progress Note Date Seen: May 27, 2025 Medical Necessity Reason Pt with a Central, PICC or Fol: No Subjective Review of Systems: RESPIRATORY:Abnormal Other Systems: Patient seen and examined by myself today in follow-up, patient remained on BiPAP Objective vital signs Vital Sign Date Time Temp Pulse Resp B/P (MAP) Pulse Ox O2 Delivery O2 Flow Rate FiO2 05/27/25 11:00 72 12 05/27/25 10:45 95 05/27/25 10:00 Bi-Pap+ 85 85 05/27/25 08:00 8 05/27/25 08:00 98.8 98.8 Total Intake and Output 05/26/25 05/26/25 05/27/25 15:00 23:00 07:00 Intake Total 1186.096 ml 720.755 ml 636.441 ml Output Total 1030 ml 30 ml Balance 1186.096 ml -309.245 ml 606.441 ml medications Current Medications Medications Dose Ordered Sig/Linda Route Start Time Stop Time Status Last Admin Dose Admin Ondansetron HCl 4 mg Q4HP PRN IV 05/25/25 12:45 05/26/25 20:49 Enoxaparin Sodium 40 mg DAILY SC 05/26/25 10:00 05/26/25 08:22 Acetaminophen 650 mg Q6HP PRN PO 05/25/25 12:45 Ceftriaxone Sodium 50 ml @ 100 mls/hr DAILY@09 IV 05/26/25 09:00 05/27/25 08:02 Atorvastatin Calcium 40 mg DAILY PO 05/26/25 10:00 Levothyroxine Sodium 75 mcg QAM@0600 PO 05/26/25 06:00 05/26/25 06:13 Dextrose 50 ml UD PRN IV 05/25/25 17:15 Norepinephrine Bitartrate 32 mg/ Sodium Chloride 250 ml @ 0.938 mls/ hr Q24H IV 05/25/25 17:15 05/26/25 20:55 Phenylephrine HCl 80 mg/Sodium Chloride 250 ml @ 7.5 mls/hr Q24H IV 05/25/25 17:45 05/27/25 06:49 Vasopressin 20 units/Sodium Chloride 100 ml @ 9 mls/hr Q11H7M IV 05/25/25 22:45 05/27/25 03:47 Diagnostic Test (Pha) 1 strip IQ4HR 05/26/25 04:00 05/27/25 07:26 Insulin Human Regular IQ4HR SC 05/26/25 04:00 05/27/25 07:26 Sodium Bicarbonate 150 ml/Dextrose/ Sodium Chloride 1,150 ml @ 125 mls/hr Q9H12M IV 05/26/25 17:00 05/26/25 23:40 Octreotide Acetate 100 mcg TID SUBCUT 05/26/25 17:00 05/27/25 06:18 Epinephrine HCl 250 ml @ 7.5 mls/hr Q24H IV 05/26/25 20:30 05/27/25 09:01 Doxycycline Hyclate 100 ml @ 50 mls/hr Q12H IV 05/27/25 08:30 05/27/25 08:30 Bumetanide 2 mg DAILY IV 05/27/25 10:15 Morphine Sulfate 2 mg Q2HPRN PRN IV 05/27/25 10:30 05/27/25 10:46 Lorazepam 1 mg Q2HP PRN IV 05/27/25 10:30 05/27/25 10:46 Examination: LUNGS:Normal, CVS:Normal, MSK:Abnormal laboratory and microbiology Laboratory Tests 05/27/25 03:07 Test 05/27/25 03:07 Range/Units Serum Glucose 237 H 74-106 mg/dL Microbiology Date/Time Source Procedure Growth Status 05/25/25 18:00 Nose MRSA Screen - Final Complete 05/25/25 09:15 Stool Clostridium difficile Toxin Assay - Final Complete 05/25/25 08:41 Blood Blood Culture - Preliminary NO GROWTH AFTER 48 HOURS OF INCUBATION. Resulted 05/25/25 08:07 Urine - [place] Urine Culture - Preliminary Resulted Problem List/Assessment/Plan Problem List/Assessment/Plan Acute kidney injury superimposed Chronic Kidney Disease secondary hemodynamic mediated Acute respiratory failure, BiPAP Septic shock Gram-negative sepsis UTI Uncontrolled diabetes mellitus Hyperglycemia Metabolic acidosis Hypophosphatemia Hypokalemia Hypomagnesemia Liver cirrhosis Hypoalbuminemia Recommendations Kidney function continue to worsened today Increased urine output [place] catheter Strict I&Os IV fluids with bicarb KCL replacement IV pressors for BP support Keep MAP > 65 mm Hg Octreotide 100 mcg SQ TID Insulin sliding scale IV antibiotics Daughters at the bedside due to patient's poor condition and grave prognosis they decided on comfortably care I will sign off this case, please reconsult as needed Thank you for the kind Plan discussed with: Daughter, Other (Nurse) My Orders My Orders Orders - NASEEM GIPSON MD Procedure Category Date Status Time D5w/Sod Chl 0.45% PHA 05/26/25 In Process (... W/Sodium Bicarb 5 17:00 Kidney US 05/26/25 Resulted 17:00 Vitamin D, 25-Hydroxy LAB 05/26/25 In Process 17:00 Urine Sodium LAB 05/26/25 Logged 17:00 Urinalysis LAB 05/26/25 Logged 17:00 Hepatitis C Antibody LAB 05/26/25 In Process 17:00 Hepatitis B Surface LAB 05/26/25 In Process Antigen 17:00 Octreotide Acetate PHA 05/26/25 In Process (Sandostatin) 17:00 Urine LAB 05/26/25 Logged Protein/Creatinine 17:00 Bumetanide Injection PHA 05/27/25 In Process (Bumex Injection) 10:15 Dietary Evaluation Review Comments: 1) Initiate Glucerna bid 2) If PO intake <50%, consider EN/TPN to provide supplemental nutrition 3) Refer to outpatient RD/CDCES for diabetes education 4) Continue to monitor I&O, labs, and skin integrity Expected Outcomes/Goals: 1) appetite and labs to improve 2) gradual wt loss 3) f/u in 3-5 days Fluid Accumulation (N/A): N/A NASEEM GIPSON MD May 27, 2025 11:24
--- NOTE | 2025-05-27 17:00 | DVHDS2 ---
Summary Date of Admission May 25, 2025 at 12:37 Date and Time of Expiration: May 27, 2025 11:15 Labs/Diagnostic Data: Laboratory Results Test 05/27/25 08:00 05/27/25 07:34 05/27/25 07:11 05/27/25 03:07 Lactic Acid Level 10.9 mmol/L (0.4-2.0) Blood Gas Specimen Type Arterial Blood Gas Sample Site Right radial Blood Gas Patient Temperature 37.0 Arterial Blood Date Drawn [id number] Arterial Blood pH 7.359 (7.350-7.450) Arterial Blood Partial Pressure CO2 35.7 mmHg (32.0-45.0) Arterial Blood Partial Pressure O2 74.3 mmHg (83.0-108.0) Arterial Blood HCO3 19.7 mmol/L (21.0-28.0) Arterial Blood Oxygen Saturation 92.3 % (94.0-98.0) Arterial Blood Base Excess -5.1 mmol/L (-2.0-3.0) Arterial Blood Oxyhemoglobin 91.8 % (94.0-98.0) Arterial Blood Carboxyhemoglobin 0.2 % (0.5-1.5) Arterial Blood Methemoglobin 0.3 % (0.0-1.5) Jason Test Modified Blood Gas Total Hemoglobin 12.80 g/dL (12.0-16.0) Blood Gas Liter Flow 12.00 Blood Gas Modality Oxymizer FiO2 % 82.0 POC Glucose 241 mg/dl (70-106) White Blood Count 7.0 10^3/uL (4.4-10.8) Red Blood Count 3.94 10^6/uL (4.0-5.20) Hemoglobin 12.2 g/dL (12.2-16.2) Hematocrit 37.0 % (36.0-46.0) Mean Corpuscular Volume 94.0 fL (80.0-100.0) Mean Corpuscular Hemoglobin 31.0 pg (28.0-32.0) Mean Corpuscular Hemoglobin Concent 33.0 g/dL (32.0-36.0) Red Cell Distribution Width 14.0 % (11.8-14.3) Platelet Count 115 10^3/uL (140-450) Mean Platelet Volume 8.8 fL (6.9-10.8) Neutrophils (%) (Auto) 90.7 % (37.0-80.0) Lymphocytes (%) (Auto) 3.8 % (10.0-50.0) Monocytes (%) (Auto) 4.2 % (0.0-12.0) Eosinophils (%) (Auto) 1.0 % (0.0-7.0) Basophils (%) (Auto) 0.3 % (0.0-2.0) Neutrophils # (Auto) 6.3 10 ^3/uL (1.6-8.6) Lymphocytes # (Auto) 0.3 10 ^3/uL (0.4-5.4) Monocytes # (Auto) 0.3 10 ^3/uL (0-1.3) Eosinophils # (Auto) 0.1 10 ^3/uL (0-0.8) Basophils # (Auto) 0 10 ^3/uL (0-0.2) Nucleated Red Blood Cells 0.0 % Sodium Level 145 mmol/L (136-145) Potassium Level 3.9 mmol/L (3.5-5.1) Chloride Level 100 mmol/L (98-107) Carbon Dioxide Level 20 mmol/L (20-31) Anion Gap 25 (5-15) Blood Urea Nitrogen 42 mg/dL (9-23) Creatinine 4.68 mg/dL (0.550-1.02) Glomerular Filtration Rate Calc 9 mL/min (>90) BUN/Creatinine Ratio 9.0 (10.0-20.0) Serum Glucose 237 mg/dL (74-106) Calcium Level 7.3 mg/dL (8.7-10.4) Magnesium Level 2.1 mg/dL (1.6-2.6) Test 05/26/25 20:35 05/26/25 19:41 05/26/25 17:50 05/26/25 11:37 Influenza Type A Antigen Negative (Negative) Influenza Type B Antigen Negative (Negative) SARS-CoV-2 Antigen (Rapid) Negative (NEGATIVE) Venous Blood pH 7.215 (7.320-7.430) Venous Blood pCO2 at Patient Temp 46.5 mmHg (38.0-54.0) Venous Blood pO2 at Patient Temp < 36.5 mmHg (23.0-48.0) Venous Blood HCO3 18.4 mmol/L (22.0-29.0) Venous Blood Base Excess -9.3 mmol/L (-2.0-3.0) Phosphorus Level 6.5 mg/dL (2.4-5.1) Ammonia 25 umol/L (11-32) B-Type Natriuretic Peptide 421.05 pg/mL (0-100) Parathyroid Hormone (Intact) 250.4 pg/mL (18.4-80.1) Test 05/26/25 11:36 05/26/25 11:00 05/26/25 02:58 05/25/25 12:50 Hemoglobin A1c > 14.0 % A1C (<5.7) Total Bilirubin 0.7 mg/dL (0.2-1.0) Aspartate Amino Transferase (AST) > 6000 U/L (13-40) Alanine Aminotransferase (ALT) 2349 U/L (7-40) Alkaline Phosphatase 85 U/L (46-116) Total Protein 5.0 g/dL (5.7-8.2) Albumin 2.9 g/dL (3.2-4.8) Blood Gas Comments 0300 md zelaya Blood Gas Critical Value Read Back Yes Blood Gas Notified Whom teena Lyon Blood Gas Notified Time [id number] Blood Gas Notified By Production Support Manager miracle mariano Serum Osmolality 298 mOsm/kg (278-298) Beta-Hydroxybutyric Acid 0.111 mmol/L (< 0.4) Test 05/25/25 09:15 05/25/25 08:41 05/25/25 08:07 Stool Occult Blood Positive (Negative) Stool Occult Blood Sample #3 (Negative) Prothrombin Time 11.6 sec (9.3-11.8) Prothrombin Time INR 1.11 (0.9-1.15) Activated Partial Thromboplast Time 26.7 SEC (24.5-34.5) Plasma/Serum Blood Alcohol < 3.0 mg/dL (<10) Urine Color Colorless (Yellow) Urine Clarity Turbid (Clear) Urine pH 5.5 (5.0-9.0) Urine Specific [place] 1.008 (1.001-1.035) Urine Protein Negative (Negative) Urine Ketones Negative (Negative) Urine Blood Trace /uL (Negative) Urine Nitrite 2+ (Negative) Urine Bilirubin Negative (Negative) Urine Urobilinogen Normal mg/dL (Negative) Urine Leukocyte Esterase 3+ /uL (Negative) Urine RBC 6 /hpf (0 - 4) Urine Microscopic WBC 366 /HPF (0-5) Urine Squamous Epithelial Cells None seen /hpf (<5) Urine Bacteria Few /hpf (None Seen) Urine Glucose 4+ mg/dL (Normal) Other Laboratory Tests 05/27/25 03:07 Brief Hx & Hospital Course: 75-year-old female with a known history of diabetes mellitus type 2 currently only on metformin at home as per daughter, dyslipidemia, hypothyroidism who was noted by daughter with altered mental status and sitting in her own feces at home, who was brought in by paramedics found to have septic shock skin angiogram negative urinary tract infection. Vision but jejunal aggressively in ICU setting on IV hydration IV antibiotics and vasopressors. Patient hospital course was eventful for acute decompensation with multiorgan irrigated requiring multiple vasopressors and IV fluids and IV antibiotics. The patient was in diabetic ketoacidosis and was on insulin drip as well. Patient family decided to make full DNR DNI and comfort measures only. The patient on05/27. Declaration of :11:15 on 05/27/2025> Pupils are fixed and dilated No ncorneal reflexes No dolls eye movements No audible heart sounds No spontaneous respirations No spontaneous broadly movements. Final Diagnosis/Problems List 1. Sepsis secondary to urinary tract infection 2. Gram negative urinary tract infection Secondary Diagnosis: Diabetic ketoacidosis Multiorgan failure Discharge Disposition: at Hospital ESVIN PEREZ MD May 27, 2025 16:59
--- NOTE | 2025-05-28 | DVHPN2 ---
Progress Note - Dictate Date Seen: May 27, 2025 (Time of Note: 8:15 AM) Medical Necessity Reason Pt with a Central, PICC or Fol: Yes The following are medically ne: Mauro Catheter Reason for mauro catheter: Strict I&O Subjective Patient seen and examined at bedside. On supplemental oxygen Overnight events reviewed. vital signs Vital Sign Date Time Temp Pulse Resp B/P (MAP) Pulse Ox O2 Delivery O2 Flow Rate FiO2 05/27/25 11:00 72 12 05/27/25 10:45 95 05/27/25 10:00 Bi-Pap+ 85 85 05/27/25 08:00 8 05/27/25 08:00 98.8 98.8 Total Intake and Output 05/27/25 05/27/25 05/28/25 15:00 23:00 07:00 Intake Total 987.073 ml Balance 987.073 ml objective Gen.: Patient lying in bed in no apparent distress. On supplemental oxygen. Head: Normocephalic, atraumatic. Eyes: EOMI/PERRLA. Ears: Normal hearing. Normal anatomy. Neck/trachea: Trachea midline, supple. Nose: Normal external anatomy. Mouth: Moist mucous membranes. Chest: Decreased air entry bilaterally. No wheezing or rhonchi. Cardiovascular: Positive S1, positive S2. Regular rate and rhythm. Abdomen: Positive bowel sounds in all 4 quadrants. Soft, non-tender, non- distended. : Deferred. Rectal: Deferred. Skin: Warm, dry. Intact. Extremities: 2+ radial pulses bilaterally. No lower extremity edema. Neuro: Awake, alert, oriented x3. No gross motor or sensory deficits. Cranial nerves II through XII intact. Gait not assessed. laboratory and microbiology Laboratory Tests 05/27/25 03:07 Test 05/27/25 03:07 Range/Units Serum Glucose 237 H 74-106 mg/dL Assessment/Plan Impression: Acute hypoxic respiratory failure Dependence on supplemental oxygen Diabetic ketoacidosis Multiorgan failure (liver and renal failure) Renal failure Septic shock Obesity, BMI 35.3 Plan: Supplemental oxygen On 15 LPM nonrebreather. Start BiPAP for respiratory distress. Titrate to keep O2 sats above 92%. On bicarb drip. Continue antibiotics - start doxycycline Glycemic control - Accu-Cheks, insulin drip. On pressors for hemodynamic support Titrate to keep MAP above 65 mmHg/SBP above 90 mmHg. Monitor renal function. Monitor electrolytes. Supplement as necessary. Monitor ins and outs. Note, patient with overall poor prognosis due to multi-organ failure (renal and liver failure). Family agreed for comfort/supportive care. DVT prophylaxis. Prognosis: Poor given patient's multiple co-morbidities. Condition: Critical Rest of plan per hospitalist and other consultants. A total of 35 minutes of critical care time was spent reviewing the patient record, examining the patient, making a diagnostic and therapeutic plan, discussing this plan with the medical personnel, following up on diagnostic studies and following the patient for clinical stability excluding any and all procedures. At least 50% of this time was spent in direct, [id number] contact. Thank you, MEJIA Abebe, for allowing me to participate in this patient's care. Further recommendations will depend on the patient's clinical course. Please do not hesitate to contact me if you have any questions or concerns. This medical document was created using an electronic medical record system with [employer] dictation system. Although these documentations are being carefully reviewed, there may still be some phonetic and typographical changes. The errors are purely typographical, due to imperfection on the software program, and do not reflect any compromise in the patient's medical care. Dietary Evaluation Review Comments: 1) Initiate Glucerna bid 2) If PO intake <50%, consider EN/TPN to provide supplemental nutrition 3) Refer to outpatient RD/CDCES for diabetes education 4) Continue to monitor I&O, labs, and skin integrity Expected Outcomes/Goals: 1) appetite and labs to improve 2) gradual wt loss 3) f/u in 3-5 days Fluid Accumulation (N/A): N/A Plan discussed with: Other (LINDSAY Aldana) Critical Care Time(min): 35 FREDRICK NIETO MD May 28, 2025 00:00
[2025-05-28 11:18] LABS: Hepatitis B Surface Antigen Negative (Negative); Hepatitis C Antibody Negative (Negative)
[2025-05-28 11:18] LABS: Hepatitis B Surface Antigen Negative (Negative); Hepatitis C Antibody Negative (Negative)
== END 2025-05-27 11:15 | DRG 871 ==
LOC: EDBD 06:25 → EDUNIT# 06:25 → ER 06:27 → OVERFLOW 12:37 → ICU WEST 14:34
PROC: 06HY33Z Insertion of Infusion Device into Lower Vein, Percutaneous Approach (ICD-10-PCS; 2025-05-25)
PROC: 5A09357 Assistance with Respiratory Ventilation, Less than 24 Consecutive Hours, Continuous Positive Airway Pressure (ICD-10-PCS; principal; 2025-05-27)
DX: A41.50 Gram-negative sepsis, unspecified (principal); E11.10 Type 2 diabetes mellitus with ketoacidosis without coma; G93.41 Metabolic encephalopathy; J96.01 Acute respiratory failure with hypoxia; R65.21 Severe sepsis with septic shock; K72.00 Acute and subacute hepatic failure without coma; N17.9 Acute kidney failure, unspecified; N39.0 Urinary tract infection, site not specified; I82.611 Acute embolism and thrombosis of superficial veins of right upper extremity; Z68.34 Body mass index [BMI] 34.0-34.9, adult; Z66 Do not resuscitate; E11.22 Type 2 diabetes mellitus with diabetic chronic kidney disease; E83.39 Other disorders of phosphorus metabolism; E83.42 Hypomagnesemia; E87.6 Hypokalemia; E88.09 Other disorders of plasma-protein metabolism, not elsewhere classified; K74.60 Unspecified cirrhosis of liver; N18.9 Chronic kidney disease, unspecified; Z20.822 Contact with and (suspected) exposure to COVID-19; E78.5 Hyperlipidemia, unspecified; E66.9 Obesity, unspecified; F17.200 Nicotine dependence, unspecified, uncomplicated; I12.9 Hypertensive chronic kidney disease with stage 1 through stage 4 chronic kidney disease, or unspecified chronic kidney disease; Z51.5 Encounter for palliative care; Z79.84 Long term (current) use of oral hypoglycemic drugs; Z82.3 Family history of stroke; Z82.49 Family history of ischemic heart disease and other diseases of the circulatory system; Z85.118 Personal history of other malignant neoplasm of bronchus and lung; Z86.718 Personal history of other venous thrombosis and embolism; Z90.2 Acquired absence of lung [part of]; Z99.81 Dependence on supplemental oxygen
CPT/HCPCS: 36415; 36600; 70450; 71045; 76705; 76775; 80048; 80053; 80074; 80320; 81001; 82010; 82140; 82270; 82306; 82805; 82962; 83036; 83605; 83735; 83880; 83930; 83970; 84100; 85025; 85610; 85730; 86803; 87040; 87081; 87086; 87088; 87186; 87340; 87426; 87493; 87804; 93005; 93971; 94660; 96365; 99291; G0378; J0169; J1815; J2405; J2543; J3480; J3490; J7060